=== PATIENT | female | born 1955 | race Caucasian/White ===

== ENCOUNTER 2021-08-15 16:29 | Observation (INO) | payer OTHER, SELFPAY ==
[2021-08-15] VITALS (7 sets, daily range): BP systolic 129–160; BP diastolic 59–102; PULSE 77–88; RESP 20; TEMP 36.4–36.7; O2SAT 98–100; BMI 34.1
--- NOTE | ~2021-08-15 | XR_ITS ---
EXAMINATION: XR chest 1V portable INDICATION: Elevated BNP, headache TECHNIQUE: Portable AP chest at 1912 hours COMPARISON: None available FINDINGS: Cardiomegaly is noted. There is a mild diffuse interstitial pattern. No pleural effusion or pneumothorax is identified. A triple lead cardiac pacemaker of the left chest wall ends with leads i n expected locations. Surgical clips are noted in the left upper quadrant. There is moderate osteoart hritis of the shoulders. IMPRESSION: 1. Cardiomegaly with mild pulmonary edema. Reviewed, dictated and finalized at location F.
--- NOTE | ~2021-08-15 | CT_ITS ---
EXAMINATION: CT brain wo con INDICATION: Headache, history of CVA COMPARISON: None TECHNIQUE: Standard unenhanced head CT. The dose-length product (DLP) was 681.00 mGy-cm. The mA was a djusted according to patient size. Iterative reconstruction technique was employed. FINDINGS: There is no acute intraparenchymal hemorrhage. No evidence of mass lesion. No evidence of a cute infarction. There is encephalomalacia in the right frontal, parietal, and occipital lobes relate d to prior infarct. There is mild periventricular and subcortical hypodensity probably related to sma ll vessel ischemic disease. There is mild prominence of the sulci and ventricles related to cerebral atrophy. Intracranial calcified cerebral atherosclerosis is noted. There are no extra-axial collectio ns. There is no mass effect or midline shift. The orbits and soft tissues are unremarkable. The visua lized sinuses and mastoid air cells are well aerated. IMPRESSION: 1. Areas of prior infarct without acute intracranial abnormality. 2. Age related findings. Reviewed, dictated and finalized at location F.
--- NOTE | ~2021-08-15 | CT_ITS ---
EXAMINATION: CT cervical spine wo con DATE: 08/15/2021 17:32 INDICATION: Headache TECHNIQUE: Computed tomography (CT) of the cervical spine was performed without intravenous contrast. The dose-length product (DLP) was 681.00 mGy-cm. Automated exposure control and iterative reconstruc tion technique were employed. COMPARISON: None FINDINGS: There are 2 mm of retrolisthesis of C4 on C5. The vertebral body heights are maintained. Th ere is mild loss of intervertebral disc space height at multiple levels throughout the cervical spine . The odontoid is intact. The prevertebral soft tissues are normal. Small degenerative osteophytes pr oject from the anterior endplates of multiple vertebral bodies. IMPRESSION: 1. Mild cervical spondylosis without acute findings. Reviewed, dictated and finalized at location F.
--- NOTE | 2021-08-15 16:49 | ECG_ITS ---
Measurements Intervals [place] Rate: 87 P: 47 NM: 165 QRS: 2 QRSD: 138 T: 54 QT: 417 QTc: 503 Interpretive Statements ELECTRONIC VENTRICULAR PACEMAKER NO FURTHER INTERPRETATION POSSIBLE NO PREVIOUS ECG AVAILABLE FOR COMPARISON Electronically Signed On 08-15-2021 17:10:18 CDT by Ray Tracy M.D.
--- NOTE | 2021-08-15 17:02 | ED.HA ---
HPI - Headache General Chief Complaint: Headache Stated Complaint: possible stroke Time Seen by Provider: 08/15/21 16:34 Source: patient and family Mode of arrival: ambulatory Limitations: no limitations History of Present Illness HPI Narrative: this is 66-year-old female with a history of stroke that occurred in 2017 with left-sided residual mainly her left arm currently started having headache earlier this morning at about a 7 in the morning, and the patient was concerned that when she had her stroke she developed a headache. Currently there is some nausea with no vomiting does have a history of CHF and hypertension. The patient has no fever chills no shortness of breath no chest pain does have a a pacemaker in place. There is no dysuria no abdominal pain no flank pain no blurry vision no new neurological deficits. MD elicited complaint: headache Pertinent past history: other ( history of CVA) Onset description: gradually Location: right and band-like Severity: moderate Pain scale (0-10): 6 Quality & Timing: aching Exacerbating factors: movement of head/neck Related Data Home Medications Medication Instructions Recorded Confirmed aspirin 81 mg PO DAILY 08/15/21 08/15/21 atorvastatin 80 mg PO DAILY 08/15/21 08/15/21 bupropion HCl 300 mg PO DAILY 08/15/21 08/15/21 carbidopa-levodopa 1 tablet PO TID 08/15/21 08/15/21 citalopram 40 mg PO DAILY 08/15/21 08/15/21 clopidogrel 75 mg PO DAILY 08/15/21 08/15/21 furosemide 20 mg PO QACLUNCH 08/15/21 08/15/21 furosemide 40 mg PO QACBREAK 08/15/21 08/15/21 insulin glargine [Lantus Solostar 50 unit SUBCUT BID 08/15/21 08/15/21 U-100 Insulin] insulin lispro [Admelog U-100 30 unit SUBCUT TID 08/15/21 08/15/21 Insulin lispro] isosorbide mononitrate 30 mg PO DAILY 08/15/21 08/15/21 lorazepam 0.25 - 0.5 mg PO TID PRN 08/15/21 08/15/21 magnesium oxide 400 mg PO DAILY 08/15/21 08/15/21 nitroglycerin 0.4 mg SUBLINGUAL DAILY PRN 08/15/21 08/15/21 oxybutynin chloride 5 mg PO BID 08/15/21 08/15/21 pantoprazole 40 mg PO DAILY 08/15/21 08/15/21 pramipexole 0.25 mg PO HS 08/15/21 08/15/21 sacubitril-valsartan [Entresto] 1 tablet PO BID 08/15/21 08/15/21 Allergies Allergy/AdvReac Type Severity Reaction Status Date / Time buspirone [BuSpar] Allergy Intermediate nausea Verified 10/19/20 09:38 duloxetine [Cymbalta] Allergy Intermediate Unknown Verified 08/15/21 16:51 pregabalin [Lyrica] Allergy Intermediate Unknown Verified 08/15/21 16:51 sulfamethoxazole Allergy Unknown Verified 08/15/21 16:51 [From Bactrim] trimethoprim [From Bactrim] Allergy Unknown Verified 08/15/21 16:51 Review of Systems Review of Systems: All systems reviewed & are unremarkable except as noted in HPI and below PMFSH Past Medical History Medical History CHF (congestive heart failure) History of CVA (cerebrovascular accident) HTN (hypertension) Pacemaker Social History Social History Smoking status: Current every day smoker Exam Const: General: no acute distress and alert Orientation/consciousness: patient oriented x3 HENMT: Head: normal to inspection Eyes: Conjunctivae: conjunctivae normal Pupils: Equal, round and reactive pupils present EOM: EOMs intact bilaterally Neck: Neck: normal visual inspection, no lymphadenopathy and no meningeal signs Chest: Chest palpation & inspection: normal inspection of the chest Resp: Effort & Inspection: normal respiratory effort Auscultation: clear to auscultation bilaterally Cardio: Rate: regular rate Rhythm: regular rhythm Heart sounds: Murmur heart sound present GI: GI Palp: Yes Soft to palpation : General: Yes no CVA tenderness Urinary Catheter: Urinary Catheter: patent and draining Back/Spine/Pelvis: Back: no CVA tenderness Skin: General skin exam: normal color Rashes: no rashes Neuro: General: patient oriented x3, moves all
[2021-08-15] MEDS: ONDANSETRON INJ 4 MG/2 ML VIAL IV PUSH (17:10)
[2021-08-15] MEDS: MORPHINE SULFATE (*CRX) 2 MG/ML INJ IV PUSH (17:10)
[2021-08-15 17:11] LABS: Basophils Absolute Auto 0.05 K/mm3 (0.00-0.10); Basophils Percent Auto 0.5 % (0.0-1.0); Eosinophils Absolute Auto 0.17 K/mm3 (0.02-0.50); Eosinophils Percent Auto 1.8 % (1.0-6.0); Hematocrit 44.4 % (35.0-49.0); Hemoglobin 14.6 g/dL (12.0-15.0); Immature Granulocyte Absolute 0.03 K/mm3 (0.00-0.00); Immature Granulocyte Percent A 0.3 % (0.0-0.0); Lymphocytes Absolute Auto 1.95 K/mm3 (1.10-4.50); Lymphocytes Percent Auto 21.2 % (18.0-42.0); Mean Corpuscular HGB Conc 32.9 g/dL (32.0-36.0); Mean Corpuscular Hemoglobin 26.1 pg (27.0-31.0); Mean Corpuscular Volume 79.3 fL (78.0-102.0); Mean Platelet Volume 9.7 fl (9.2-11.8); Monocytes Absolute Auto 0.47 K/mm3 (0.10-0.90); Monocytes Percent Auto 5.1 % (2.0-11.0); Neutrophils Absolute Auto 6.5 K/mm3 (1.7-7.2); Neutrophils Percent Auto 71.1 % (50.0-70.0); Platelet Count Result 228 K/mm3 (150-420); Red Cell Distribution Width 13.4 % (11.6-14.4); White Blood Count 9.2 K/mm3 (4.8-10.8)
[2021-08-15 17:26] LABS: Alanine Aminotransferase 17 U/L (14-59); Albumin Level 3.2 g/dL (3.4-5.0); Alkaline Phosphatase 110 U/L (46-116); Anion Gap 10 mmol/L (8-16); Aspartate Amino Transferase 21 U/L (15-37); Bilirubin,Total 0.5 mg/dL (0.00-1.00); Blood Urea Nitrogen 10 mg/dL (7-18); Calcium 9.3 mg/dL (8.5-10.1); Carbon Dioxide 27 mmol/L (21-32); Chloride 94 mmol/L (98-108); Estimated CRCL calculation 49 ml/min; Estimated Glomerular Filt Rate 54; Glucose 373 mg/dL (70-99); Osmolality Calculated 286 mOsm/kg (285-295); Potassium 3.6 mmol/L (3.5-5.1); Sodium 131 mmol/L (136-145); Total Protein 8.1 g/dL (6.4-8.2); Troponin I 56.5 ng/L (0.00-60.4)
[2021-08-15 17:28] LABS: CRP < 0.2 mg/dL (0.0-0.9)
[2021-08-15 17:29] LABS: Lactic Acid Reflex 1.9 mmol/L (0.4-2.0)
[2021-08-15 18:01] LABS: NT Pro B Type Natriuretic Pept 1540 pg/mL (0-125)
[2021-08-15 18:17] LABS: Add Urine Microscopic? YES; Appearance Urine Clear (Clear); Bilirubin Urine Negative (Negative); Blood Urine 2+ (Negative); Color Urine Light Yellow (Yellow); Glucose Urine UA 3+ (Negative); Ketones Urine Negative (Negative); Leukocyte Esterase Ur Negative (Negative); Nitrate Urine Positive (Negative); Protein Urine 3+ (Negative); Urobilinogen Urine 0.2 mg/dL (0.2-1.0)
[2021-08-15 18:23] LABS: Bacteria Urine 3+ /hpf; RBC Urine 21-50 /hpf (0-2); Squamous Epithelial Cell Urine None seen /hpf (Few)
--- NOTE | 2021-08-15 19:15 | ADMGEN ---
This patient, Lillian Huntley, was admitted to 2nd Floor Room 205-2. Patient/family oriented to hospital policies and general routines including ID bracelet, bed and alarms, pain management, procedures, bathroom and other care routines, personal items, smoking policy, room service/diet, and visiting hours. Information on how to activate the Rapid Response Team has been discussed. Patient/Family are encouraged to report perceived risks to care and to ask questions if they do not understand what they are told or what they should do.
[2021-08-15] MEDS: INSULIN GLARGINE (*BKC) 100 UNITS/ML 50 UNITS SUB-Q (21:06)
[2021-08-15] MEDS: OXYBUTYNIN CHLORIDE 5 MG TABLET PO (21:07)
[2021-08-15] MEDS: PRAMIPEXOLE 0.25 MG TABLET PO (21:07)
[2021-08-15] MEDS: SODIUM CHLORIDE 1 GM TABLET PO (21:07)
[2021-08-15] MEDS: SACUBITRIL/VALSARTAN 24-26 MG TABLET 1 TAB PO (21:07)
[2021-08-15 21:08] LABS: Glucose Point of Care 288 mg/dl (65-105)
[2021-08-16] VITALS: BP 110/60; PULSE 66; RESP 18; TEMP 36.7; O2SAT 96
[2021-08-16] MEDS: HYDROcodone/acetaminophen (*CRX) 5-325 MG TABLET 1 TAB PO (04:26)
[2021-08-16 05:32] LABS: Hemoglobin 12.4 g/dL (12.0-15.0); Mean Corpuscular HGB Conc 31.8 g/dL (32.0-36.0); Mean Corpuscular Hemoglobin 26.1 pg (27.0-31.0); Mean Corpuscular Volume 82.1 fL (78.0-102.0); Mean Platelet Volume 9.9 fl (9.2-11.8); Platelet Count Result 195 K/mm3 (150-420); Red Blood Count 4.75 M/mm3 (4.20-5.40); Red Cell Distribution Width 13.6 % (11.6-14.4); White Blood Count 8.9 K/mm3 (4.8-10.8)
[2021-08-16 05:49] LABS: Alanine Aminotransferase 14 U/L (14-59); Albumin Level 2.7 g/dL (3.4-5.0); Alkaline Phosphatase 88 U/L (46-116); Anion Gap 7 mmol/L (8-16); Aspartate Amino Transferase 17 U/L (15-37); Bilirubin,Total 0.4 mg/dL (0.00-1.00); Blood Urea Nitrogen 18 mg/dL (7-18); Calcium 8.4 mg/dL (8.5-10.1); Carbon Dioxide 27 mmol/L (21-32); Chloride 98 mmol/L (98-108); Estimated CRCL calculation 33 ml/min; Estimated Glomerular Filt Rate 33; Glucose 293 mg/dL (70-99); Magnesium 1.7 mg/dL (1.8-2.4); Osmolality Calculated 286 mOsm/kg (285-295); Potassium 3.5 mmol/L (3.5-5.1); Sodium 132 mmol/L (136-145); Total Protein 6.7 g/dL (6.4-8.2)
[2021-08-16 08:00] VITALS: BP 102/52; PULSE 64; RESP 16; TEMP 36.1; O2SAT 93
[2021-08-16 08:04] LABS: Glucose Point of Care 316 mg/dl (65-105)
[2021-08-16] MEDS: ENOXAPARIN 40 MG/0.4 ML SYRINGE SUB-Q (08:17)
[2021-08-16] MEDS: buPROPion HCL XL (24 HR) 150 MG TABCR 300 MG PO (08:17)
[2021-08-16] MEDS: ISOSORBIDE MONONITRATE 30 MG TAB.ER.24H PO (08:18)
[2021-08-16] MEDS: OXYBUTYNIN CHLORIDE 5 MG TABLET PO (08:18)
[2021-08-16] MEDS: CITALOPRAM HYDROBROMIDE 20 MG TABLET 40 MG PO (08:18)
[2021-08-16] MEDS: ATORVASTATIN 40 MG TABLET 80 MG PO (08:19)
[2021-08-16] MEDS: SODIUM CHLORIDE 1 GM TABLET PO (08:19)
[2021-08-16] MEDS: ASPIRIN 81 MG ENTERIC TABLET PO (08:19)
[2021-08-16] MEDS: FUROSEMIDE 40 MG TABLET PO (08:19)
[2021-08-16] MEDS: PANTOPRAZOLE 40 MG TABLET PO (08:19)
[2021-08-16] MEDS: CLOPIDOGREL BISULFATE 75 MG TABLET PO (08:19)
[2021-08-16] MEDS: MAGNESIUM OXIDE 400 MG TABLET PO ×2 (08:20→12:31)
[2021-08-16] MEDS: CARBIDOPA/LEVODOPA 25/100 MG TABLET 1 TABLET PO ×2 (08:20→12:31)
[2021-08-16] MEDS: INSULIN GLARGINE (*BKC) 100 UNITS/ML 50 UNITS SUB-Q (08:21)
[2021-08-16] MEDS: PROCHLORPERAZINE EDISYLATE 10 MG/2 ML VIAL IV PUSH (08:30)
[2021-08-16] MEDS: SACUBITRIL/VALSARTAN 24-26 MG TABLET 1 TAB PO (08:40)
[2021-08-16] MEDS: SODIUM CHLORIDE 0.9% IV 1,000 ML 75 ML IV CONT (08:41)
--- NOTE | 2021-08-16 09:55 | PM.SD2 ---
Same Day Admit/Disch: HPI History of Present Illness Chief complaint: UTI,Hyperglycemia Narrative: Lillian Huntley is a 66 year old female that presented to our emergency department with a headache and concerns for a CVA. Patient has a past medical history of congestive heart failure, Parkinson's ,CVA, hypertension and pacemaker. According to patient she developed a headache yesterday she also noted that with her previous CVA she had the same symptoms and was concerned that she might possibly be having another CVA. Patient does have residual from her previous CVA to her left side she is currently having involuntary flinching of her eye in lip to the right side which is new for her. Patient is also lethargic at the time of assessment she is arousable. It does not appear to be any residual to her upper or lower extremities. She also has facial drooping to the left side from a previous CVA she continues to have a headache. Vital signs 110/60, 66, 18, 98.1, 96% on room air, WBCs 8.9, hemoglobin 12.4, hematocrit 39.0, platelets 195, sodium 132, potassium 3.5, BUN 18, creatinine 1.59, glucose 293, hemoglobin A1c 12.0, lactic acid 1.9, calcium 8.4, magnesium 1.7, BNP 1540, CRP within normal CRP, troponin, lactic acid are within normal limits, UA positive for protein, chest x-ray with mild pulmonary edema cervical and head CT no acute findings. Spoke with Dr. Dean concerning patient's symptoms recommend transfer to rule out new CVA or seizures. We will not be able to get a MRI complete until tomorrow. [facility] Past Medical History Medical History Arthritis Cardiomyopathy Status post ICD insertion. Cerebrovascular accident Mild left-sided weakness. Congestive heart failure Coronary artery disease Hypertension Insulin dependent type 2 diabetes mellitus Parkinsons Surgical History Surgical History History of cardiac catheterization History of cholecystectomy History of coronary angioplasty with insertion of stent History of hysterectomy Presence of combination internal cardiac defibrillator (ICD) and pacemaker Family History Family History Other Diabetes mellitus Hypertension Social History Social History Social History: Surrogate decision maker: Denilson Ceron. Code status: Full code. Smoking packs per day: 1 Smoking cigarettes per day: 20.0 Years smoked: 46 Smoking pack-years: 46.00 Smoking status: Current some day smoker Tobacco type: cigarettes Alcohol intake: never Substance use: never Substance use type: does not use Additional living arrangements comments: The patient lives in [place] with her [facility]. Spiritual care concerns: No Same Day Admit/Disch: Med Pre-admit Medications Home Medications Medication Instructions Recorded Confirmed Type Entresto 1 tablet PO BID 08/15/21 08/16/21 History Lantus Solostar U-100 Insulin 50 unit SUBCUT BID 08/15/21 08/16/21 History aspirin 81 mg PO DAILY 08/15/21 08/16/21 History atorvastatin 80 mg PO DAILY 08/15/21 08/16/21 History bupropion HCl 300 mg PO DAILY 08/15/21 08/16/21 History carbidopa-levodopa 1 tablet PO TID 08/15/21 08/16/21 History citalopram 40 mg PO DAILY 08/15/21 08/16/21 History clopidogrel 75 mg PO DAILY 08/15/21 08/16/21 History furosemide 20 mg PO QACLUNCH 08/15/21 08/16/21 History furosemide 40 mg PO QACBREAK 08/15/21 08/16/21 History insulin lispro [Admelog U-100 30 unit SUBCUT TID 08/15/21 08/16/21 History Insulin lispro] isosorbide mononitrate 30 mg PO DAILY 08/15/21 08/16/21 History lorazepam 0.25 - 0.5 mg PO TID PRN 08/15/21 08/16/21 History magnesium oxide 400 mg PO DAILY 08/15/21 08/16/21 History nitroglycerin 0.4 mg SUBLINGUAL DAILY PRN 08/15/21 08/16/21 History oxybutynin chloride 5 mg PO BID 08/15/21 08/16/21 History pantopr
--- NOTE | 2021-08-16 10:37 | PC.NURSE ---
this am lying across bed. lorie help me up. ambulated to chair with stand by assist. gait is wobbly. left arm is weaker. when smiles l side doesn't move. c/o of headache in back of head and into r eye. r eye keeps flittering open and shut and scrouches up on r when asked to open eye. keeps eyes closed. she is a&o. did have sm emesis of green brown mucous. prn meds given. took only bites of food. does drink. remains up in recliner with feet up. does not want to lie down. cool compress to forehead and ice pack to back of head/neck. arouses easily and then drifts off.
[2021-08-16 11:46] LABS: Glucose Point of Care 137 mg/dl (65-105)
--- NOTE | 2021-08-16 12:10 | PC.NURSE ---
[facility] paged for transfer to [facility]
[2021-08-16] MEDS: FUROSEMIDE 20 MG TABLET PO (12:31)
--- NOTE | 2021-08-16 12:35 | PC.NURSE ---
1200 remains sluggish will respond when asked to. put legs down on recliner to get her to sit up for lunch. patient lunges out walks to other side of room then starts saying I can move. with lots of encouragement able to get her back to bsc. will not follow commands. does complete opposite. incont of urine. with 2 assist and much encouragement got her back to bed. hob bed. claims head hurts. ice pack applied. r eye and side of cont to twitch off and on. report given to corinne on 3rd floor at [facility]. [facility] aware of transfer need. refuses lunch. rolls over and curls up.
--- NOTE | 2021-08-16 12:45 | PC.NURSE ---
arouses easily very alert. quizative about meds being given. answers given. reufuses lunch. aware of transfer to [facility]. talkative and then just drifts back to sleep.
== END 2021-08-16 13:00 | disposition short-term general hospital (02) ==
LOC: CHSED 18:37 → CHS2ND 19:00
PROVIDERS: Nurse Practitioner; Admitting Provider Internal Medicine; Emergency Provider Emergency Medicine; PCP Family Medicine; Visit Provider Internal Medicine
DX: R51.9 Headache, unspecified (principal); N30.00 Acute cystitis without hematuria; E87.1 Hypo-osmolality and hyponatremia; I69.354 Hemiplegia and hemiparesis following cerebral infarction affecting left non-dominant side; I11.0 Hypertensive heart disease with heart failure; I50.9 Heart failure, unspecified; N17.9 Acute kidney failure, unspecified; G20 Parkinson's disease; Z95.0 Presence of cardiac pacemaker; Z72.0 Tobacco use
CPT/HCPCS: 36415; 70450; 71045; 72125; 80053; 81001; 82948; 83036; 83605; 83735; 83880; 84484; 85025; 85027; 86140; 87040; 87077; 87086; 87088; 87186; 93005; 96372; 96374; 96375; 97161; 97165; 99285; A9270; G0378; G0379; J0696; J0780; J1650; J1815; J2270; J2405; J7030

== ENCOUNTER 2021-08-16 14:09 | Observation (INO) | payer OTHER, SELFPAY ==
[2021-08-16] VITALS (8 sets, daily range): BP systolic 80–100; BP diastolic 48–60; PULSE 60–73; RESP 16–18; TEMP 36.1–36.2; O2SAT 92–99; BMI 34.7
--- NOTE | ~2021-08-16 | US_ITS ---
EXAMINATION: US renal BI DATE: 08/17/2021 08:24 INDICATION: Renal failure TECHNIQUE: Multiple ultrasound grayscale images of the kidneys were obtained. COMPARISON: None. FINDINGS: The right kidney measures 11.5 x 5.1 x 4.9 cm. The left kidney measures 12.6 x 6.0 x 5.2 cm. The kidn eys demonstrate normal echogenicity. There is no hydronephrosis in either kidney. No stones identifi ed. The bladder is unremarkable but is incompletely distended limiting evaluation. IMPRESSION: 1. Normal kidneys without hydronephrosis. Reviewed, dictated and finalized at location A.
--- NOTE | 2021-08-16 15:30 | PM.IMHP ---
H&P: HPI History of Present Illness Date/Time: 08/16/21 15:30 Chief Complaint: Headache and right eye twitching. Narrative: This is a 66-year-old female with history of Parkinson's, stroke, congestive heart failure, cardiomyopathy status post PM/ICD insertion, diabetes, and hypertension who is being directly admitted to telemetry from the [facility] for evaluation of a headache and right eye twitching as well as consultation with Neurology. She awoke with a headache (described as aching and band like around the head) at 07:00 yesterday morning associated with mild nausea and photophobia and she presented to the ER at the outside hospital later that afternoon as she was concerned that she was possibly having another stroke. It is my understanding that her previous stroke presented with a headache as well. Workup in the ER included a CT scan of the brain and cervical spine which showed no acute findings. UA was concerning for UTI and she was admitted to the hospital overnight for treatment of the same as well as with mild hyponatremia. This morning she was noted to have involuntary twitching around her right eye and the right side of her mouth which was assumed to be new however the patient tells me this has been ongoing for quite some time and in fact this is not a new finding for her. She was also noted to be ?lethargic? at the time of their assessment and indeed she seems to fall asleep and does not answer some of my questions without consistently touching her hand to keep her attention. She did however spring up quickly each time her phone would ping with a new message and she was able to quickly navigate the phone before setting it down and closing her eyes once again. Eventually she was very sam and told me ?I just want to sleep and not answer any more questions, sorry.? Before that interaction, she did report generalized malaise for the past couple of days including nausea and decreased oral intake as well as the headache as detailed above. She has also had mild dizziness and lightheadedness upon standing the past couple of days and her blood pressures have been running soft in the 90s systolic. Apparently that is not unusual for her since she was started on Entresto months ago. Additionally she has had mild dysuria and urgency. She had no fever to her knowledge but reported feeling warm yesterday morning. She denies neck ache. No sinus congestion, sore throat, or ear pain. No cough. She denies vomiting and diarrhea. No sick contacts. Review of Systems Review of Systems: Twelve systems were reviewed. She denies syncope. No recent falls. No acute auditory visual changes. She denies vertigo. No focal weakness or paresthesias aside from residual left-sided weakness from previous stroke. Except as documented, all other systems were reviewed and are negative. [facility] Past Medical History Medical History (Updated 08/16/21 @ 22:44 by Cally Lynne PA-C) Arthritis Cardiomyopathy Status post ICD insertion. Cerebrovascular accident Mild left-sided weakness. Congestive heart failure Coronary artery disease Hypertension Insulin dependent type 2 diabetes mellitus Parkinsons Surgical History Surgical History (Updated 08/16/21 @ 22:27 by Cally Lynne PA-C) History of cardiac catheterization History of cholecystectomy History of coronary angioplasty with insertion of stent History of hysterectomy Presence of combination internal cardiac defibrillator (ICD) and pacemaker Family History Family History (Updated 08/16/21 @ 22:27 by Cally Lynne PA-C) Other Diabetes mellitus Hypertension Social History Social History (Updated 08/16/21 @ 22:28 by Cally Lynne PA-C) Social History: Surrogate decision maker: Denilson Ceron. Code status: Full code. Smoking packs per day: 1 Smoking cigarettes per day: 20.0 Years smoked: 46 Smoking pack-years: 46.00 Smoking status: Current some day smoker Tobacco
[2021-08-16] MEDS: SODIUM CHLORIDE 0.9% IV 1,000 ML 999 ML IV CONT (18:11)
[2021-08-16 23:16] LABS: Alveolar/Arterial O2 Gradient 42.3 mmHg; Base Excess ABG -1.3 mEq/l (+/-2.0); Carboxyhemoglobin 0.5 % THb (0-2.0); Fractional Inspired Oxygen 21 %; HCO3 ABG 22.5 mEq/l (22.0-26.0); Methemoglobin ABG 0.2 %THb (0-1.5); Oxygen Saturation ABG 93.4 % (95.0-100.0); Oxyhemoglobin 92.7 % THb (90.0-100.0); PCO2 ABG 35.3 mmHg (35.0-45.0); PO2 ABG 65.2 mmHg (80.0-100.0); Reduced Hemoglobin 6.6 %THb (0-5.0); Total Hemoglobin 14.6 g/dL (12.0-18.0); pH ABG 7.422 (7.350-7.450)
[2021-08-16 23:17] LABS: Device ROOM AIR; Modified Allen's Test Pass; Site Drawn LEFT RADIAL
[2021-08-16] MEDS: INSULIN GLARGINE (*BKC) 100 UNITS/ML 50 UNITS SUB-Q (23:33)
[2021-08-16] MEDS: SODIUM CHLORIDE 0.9% IV 500 ML 50 ML IV CONT (23:34)
[2021-08-16] MEDS: CARBIDOPA/LEVODOPA 25/100 MG TABLET 1 TABLET PO (23:39)
[2021-08-16 23:47] LABS: Alanine Aminotransferase 6 U/L (4-35); Albumin Level 3.1 g/dL (3.5-5.1); Alkaline Phosphatase 85 U/L (38-126); Anion Gap 3 mmol/L (8-16); Aspartate Amino Transferase 23 U/L (14-36); Bilirubin,Total 0.3 mg/dL (0.2-1.3); Blood Urea Nitrogen 23 mg/dL (7-17); Calcium 8.2 mg/dL (8.4-10.2); Carbon Dioxide 27 mmol/L (22-30); Chloride 102 mmol/L (98-107); Estimated CRCL calculation 28 ml/min; Estimated Glomerular Filt Rate 27; Glucose 228 mg/dL (65-110); Magnesium 1.9 mg/dL (1.6-2.3); Potassium 3.5 mmol/L (3.4-5.0); Sodium 132 mmol/L (137-145)
[2021-08-17] VITALS (8 sets, daily range): BP systolic 97–142; BP diastolic 32–64; PULSE 60–82; RESP 14–18; TEMP 35.8–37; O2SAT 92–97
--- NOTE | 2021-08-17 05:26 | PCRCNOTE ---
Cally Lynne PA-C ordered an Apnea Link study on this patient to assess for BILL. The study was started on the patient at 23:55. The patient was on room air. At 00:55, the patient was found to be asleep but with the nasal cannula out of her nose; it was placed back in her nose. At 02:20, the patient was found to have removed the nasal cannula, the finger pulse ox probe, and the strap from around her chest; the study was placed back on the patient. At 02:50, the patient was again found asleep but with the nasal cannula out of her nose; the cannula was placed back in her nose. When the study was completed at approximately 05:00, the patient was again found asleep but with the nasal cannula out of her nose. The study only had 1 hour 30 minutes of flow data. There was not sufficient data available for the study.
[2021-08-17 06:40] LABS: Hematocrit 36.1 % (37.0-47.0); Hemoglobin 11.7 g/dL (12.0-15.0); Mean Corpuscular HGB Conc 32.4 g/dl (32-36); Mean Corpuscular Hemoglobin 26.4 pg (26-34); Mean Corpuscular Volume 81.5 fl (80-100); Mean Platelet Volume 10.3 fl (7.4-10.4); Platelet Count Result 185 k/mm3 (150-375); Red Blood Count 4.43 M/mm3 (4.2-5.4); Red Cell Distribution Width 13.9 % (11.5-14.5); White Blood Count 8.6 K/mm3 (4.5-10.0)
[2021-08-17 06:55] LABS: Anion Gap 6 mmol/L (8-16); Blood Urea Nitrogen 25 mg/dL (7-17); Calcium 8.1 mg/dL (8.4-10.2); Carbon Dioxide 25 mmol/L (22-30); Chloride 102 mmol/L (98-107); Estimated CRCL calculation 36 ml/min; Estimated Glomerular Filt Rate 35; Glucose 174 mg/dL (65-110); Potassium 3.3 mmol/L (3.4-5.0); Sodium 133 mmol/L (137-145)
--- NOTE | 2021-08-17 08:09 | ECHO_ITS ---
Patient Info Name: Lillian Huntely Age: 66 years : 1955 Gender: Female Ht: 62 in Wt: 199 lbs BSA: 2.03 m2 HR: 78 bpm BP: 108 / 54 mmHg Heart Rhythm: Sinus Rhythm Technical Quality: Good Exam Date: 08/17/2021 10:13 AM Exam Location: [facility] Pulmonary Exam Room: 325 Patient Status: Inpatient Admit Date: 08/16/2021 Staff Ordering Physician: Indiana Love APRN Tower Equipment Repairer: More Acevedo RDCS Attending Provider: Johnathan Dewitt MD Referring Physician: Ivan BASS; Exam Type: CA echo doppler color flow Study Info Indications - SOB PPM Complete two-dimensional, color flow and Doppler transthoracic echocardiogram is performed. Summary 1. Complete two-dimensional, color flow and Doppler transthoracic echocardiogram is performed. 2. Left ventricular chamber dimension is mildly enlarged. 3. Left ventricular systolic function is mildly reduced, estimated at 40-45%. 4. The posterior segment appears to be hypodynamic. 5. Right ventricular chamber dimension is normal. 6. Mildly sclerotic aortic valve but no significant valve dysfunction. Left Ventricle Left ventricular chamber dimension is mildly enlarged. Left ventricular systolic function is mildly reduced, estimated at 40-45%. The left ventricular diastolic function is grade I diastolic dysfunction. The posterior segment appears to be hypodynamic. Right Ventricle Right ventricular chamber dimension is normal. Left Atria Left atrial chamber dimension is normal. Right Atria Right atrial chamber dimension is normal. Aortic Valve The aortic valve is trileaflet. There is mild aortic valve sclerosis. Pulmonic Valve The pulmonic valve is not well visualized. Mitral Valve The mitral valve has normal leaflets. Tricuspid Valve The tricuspid valve leaflets are normal. Pericardium/Pleural The pericardium appears normal. Aorta The aortic root size at the sinus of Valsalva is normal. Left Ventricular Outflow Tract Name Value Normal LVOT 2D LVOT Diameter 2.0 cm LVOT Doppler LVOT Peak Gradient 5 mmHg LVOT Mean Gradient 4 mmHg LVOT VTI 24 cm LVOT VTI/AV VTI Ratio 0.7 LVOT Stroke Volume 78 ml LVOT CO 17.9 l/min LVOT CI 8.8 l/min/m2 Pulmonic Valve Name Value Normal PV Doppler PV Peak Gradient 3 mmHg Mitral Valve Name Value Normal MV Doppler MV Decel Davidson 236 cm/s2
[2021-08-17] MEDS: POTASSIUM CHLORIDE 20 MEQ TABLET 40 MEQ PO (08:34)
[2021-08-17] MEDS: CITALOPRAM HYDROBROMIDE 20 MG TABLET 40 MG PO (08:35)
[2021-08-17] MEDS: PANTOPRAZOLE 40 MG TABLET PO (08:35)
[2021-08-17] MEDS: ASPIRIN 81 MG ENTERIC TABLET PO (08:35)
[2021-08-17] MEDS: CARBIDOPA/LEVODOPA 25/100 MG TABLET 1 TABLET PO ×3 (08:35→16:35)
[2021-08-17] MEDS: ATORVASTATIN 40 MG TABLET 80 MG PO (08:35)
[2021-08-17] MEDS: MAGNESIUM OXIDE 400 MG TABLET PO (08:35)
[2021-08-17] MEDS: buPROPion HCL XL (24 HR) 150 MG TABCR 300 MG PO (08:35)
[2021-08-17] MEDS: CLOPIDOGREL BISULFATE 75 MG TABLET PO (08:35)
[2021-08-17 08:48] LABS: Glucose Point of Care 170 mg/dl (65-105)
[2021-08-17] MEDS: OXYBUTYNIN CHLORIDE 5 MG TABLET PO ×2 (09:17→16:36)
[2021-08-17] MEDS: FUROSEMIDE 20 MG TABLET PO (12:04)
--- NOTE | 2021-08-17 12:17 | PM.IMPN ---
Progress Note: A&P Assessment and Plan (1) Headache: Qualifiers: Headache chronicity pattern: unspecified pattern Headache type: unspecified Intractability: not intractable Qualified Code(s): R51.9 - Headache, unspecified Code(s): R51.9 - Headache, unspecified Status: Acute Assessment and Plan: Brain CT unremarkable. Seems almost migrainous with photosensitivity and nausea. Acetaminophen available as needed. Patient reports previously CVA with left-sided weakness--no acute findings at this time with a brain CT Neurology consult appreciate assistance and recommendations (2) Electrolyte abnormality: Code(s): E87.8 - Other disorders of electrolyte and fluid balance, not elsewhere classified Status: Acute Assessment and Plan: Including mild hyponatremia (132) and hypomagnesemia (1.7). She looks dry on exam, by labs, and with soft blood pressures I will cautiously hydrate her overnight with close monitoring of volume status. Replace and monitor electrolytes. Replace serum electrolytes, potassium 3.3-received 40 mEq of Klor-Con (3) Renal failure: Code(s): N19 - Unspecified kidney failure Status: Acute Assessment and Plan: I suspect she probably has underlying chronic kidney disease. Creatinine this morning was 1.59, up from 1.03 on arrival to the ER yesterday. Records requested from her primary care provider for review. Renal ultrasound in a.m. Monitor I/O. Patient is aware that she may have kidney disease, however she does not know what stage. Pending paperwork from primary care provider in [place] (4) Insulin dependent type 2 diabetes mellitus: Code(s): E11.9 - Type 2 diabetes mellitus without complications; Z79.4 - termite control technician (current) use of insulin Status: Acute Assessment and Plan: Poorly controlled with A1c of 12%. Continue basal insulin. Initiate sliding scale insulin, Accu-Cheks, and hypoglycemic protocol. Consult registered dietitian have a discussion with the patient, she agreed to be open minded about diet discussion (5) Abnormal urinalysis: Code(s): R82.90 - Unspecified abnormal findings in urine Status: Acute Assessment and Plan: Continue ceftriaxone, pending urine culture. (6) Cardiomyopathy: Code(s): I42.9 - Cardiomyopathy, unspecified Status: Acute Assessment and Plan: Status post PM/ICD insertion. Mild pulmonary edema on chest x-ray though she looks dry on exam. (7) Hypertension: Code(s): I10 - Essential (primary) hypertension Status: Acute Assessment and Plan: Blood pressures have been soft. Cautious IV fluid rehydration overnight. Continue Entresto with parameters. Hold isosorbide for now. (8) Parkinsons: Code(s): G20 - Parkinson's disease Status: Acute Assessment and Plan: Continue carbidopa-levodopa. Initiate fall precautions. 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 Neurology consult in Subjective Date/time seen: 08/17/21 12:17 Patient is alert and oriented this morning. She reports that she is extremely tired and after having a migraine yesterday. She has some residual headache. Had a discussion about the patient's renal function-patient reports that she has kidney issues but does not know what stage kidney disease. A renal ultrasound is currently pending and the patient was placed on Rocephin for urinary tract infection. Discussed diabetes mellitus with the patient as she reports having blood glucose levels to 200s consistently. Discussed monitoring diet control and she was agreeable to following a registered dietitian and the ability. Chest x-ray did reveal pulmonary edema however the patient does appear dry therefore did not
[2021-08-17 12:19] LABS: Glucose Point of Care 158 mg/dl (65-105)
--- NOTE | 2021-08-17 12:34 | WPDNEURCNPN ---
Assessment and Plan Additional Plan [address] scan of the head and cervical spine CT compatible with only mild cervical spondylosis acute gross neurological examination is nonfocal could very well be related to only migraines her ultrasound of the kidneys are normal and right-sided facial deficit is probably old trauma treatment will be continued as such routine blood studies are consistent with BUN 25 creatinine 1.5 blood sugar 174 and sodium wanted 33 potassium 3.3 with abnormal UA which is being treated pre Consult date: 08/17/21 HPI: Lillian Huntley is a 66 year old female Admitted to the hospital through the emergency room for the complaints of headache and possible stroke she was brought to the emergency room by the ambulance as per the information available she had a stroke in 2017 with residual left upper extremity deficit. He started having headache about 7:00 a.m. with mild nausea no vomiting and additionally carries the diagnosis of congestive heart failure and hypertension he was reportedly pacemaker in place headache was mainly bandlike more so on the right of moderate severity and described as aching, outpatient medications included Wellbutrin 300 mg daily, carbidopa levodopa 1 tablet 3 times a day, site elbow prime 40 mg daily, clopidogrel 75 mg daily, furosemide 60 mg daily, insulin 15units subcu b.i.d. lorazepam 0.25 mg t.i.d. p.r.n. and pramipexole 0.25 mg at night, as mentioned before she had the history of cerebrovascular accident with hypertension and pacemaker and also congestive heart failure but the exam was generally stable with blood pressure 160/102, Review of Systems Review of Systems: All systems reviewed & are unremarkable except as noted in HPI and below [facility] Past Medical History Medical History Arthritis Cardiomyopathy Status post ICD insertion. Cerebrovascular accident Mild left-sided weakness. Congestive heart failure Coronary artery disease Hypertension Insulin dependent type 2 diabetes mellitus Parkinsons Surgical History Surgical History History of cardiac catheterization History of cholecystectomy History of coronary angioplasty with insertion of stent History of hysterectomy Presence of combination internal cardiac defibrillator (ICD) and pacemaker Family History Family History Other Diabetes mellitus Hypertension Social History Social History Social History: Surrogate decision maker: Denilson Ceron. Code status: Full code. Smoking packs per day: 1 Smoking cigarettes per day: 20.0 Years smoked: 46 Smoking pack-years: 46.00 Smoking status: Current some day smoker Tobacco type: cigarettes Alcohol intake: never Substance use: never Substance use type: does not use Additional living arrangements comments: The patient lives in [place] with her [facility]. Spiritual care concerns: No Meds Home Medications and Allergies Home Medications Medication Instructions Recorded Confirmed Type Entresto 1 tablet PO BID 08/15/21 08/16/21 History Lantus Solostar U-100 Insulin 50 unit SUBCUT BID 08/15/21 08/16/21 History aspirin 81 mg PO DAILY 08/15/21 08/16/21 History atorvastatin 80 mg PO DAILY 08/15/21 08/16/21 History bupropion HCl 300 mg PO DAILY 08/15/21 08/16/21 History carbidopa-levodopa 1 tablet PO TID 08/15/21 08/16/21 History citalopram 40 mg PO DAILY 08/15/21 08/16/21 History clopidogrel 75 mg PO DAILY 08/15/21 08/16/21 History furosemide 20 mg PO QACLUNCH 08/15/21 08/16/21 History furosemide 40 mg PO QACBREAK 08/15/21 08/16/21 History insulin lispro [Admelog U-100 30 unit SUBCUT TID 08/15/21 08/16/21 History Insulin lispro] isosorbide mononitrate 30 mg PO DAILY 08/15/21 08/16/21 History lorazepam 0.25 - 0.5 mg PO TID PRN 08/15/21
[2021-08-17] MEDS: INSULIN GLARGINE (*BKC) 100 UNITS/ML 40 UNITS SUB-Q (16:35)
[2021-08-17] MEDS: SACUBITRIL/VALSARTAN 24-26 MG TABLET 1 TAB PO (21:32)
[2021-08-18] VITALS: BP 138/49; PULSE 62; PULSE 63; RESP 16; TEMP 35.8; O2SAT 95
[2021-08-18 04:00] VITALS: BP 136/51; PULSE 60; PULSE 62; RESP 16; TEMP 35.9; O2SAT 97
[2021-08-18] MEDS: FUROSEMIDE 40 MG TABLET PO (06:31)
[2021-08-18 08:00] VITALS: PULSE 60
[2021-08-18] MEDS: buPROPion HCL XL (24 HR) 150 MG TABCR 300 MG PO (08:41)
[2021-08-18] MEDS: CITALOPRAM HYDROBROMIDE 20 MG TABLET 40 MG PO (08:41)
[2021-08-18] MEDS: MAGNESIUM OXIDE 400 MG TABLET PO (08:42)
[2021-08-18] MEDS: OXYBUTYNIN CHLORIDE 5 MG TABLET PO (08:42)
[2021-08-18] MEDS: CLOPIDOGREL BISULFATE 75 MG TABLET PO (08:42)
[2021-08-18] MEDS: ATORVASTATIN 40 MG TABLET 80 MG PO (08:42)
[2021-08-18] MEDS: CARBIDOPA/LEVODOPA 25/100 MG TABLET 1 TABLET PO (08:42)
[2021-08-18] MEDS: INSULIN GLARGINE (*BKC) 100 UNITS/ML 40 UNITS SUB-Q (08:44)
[2021-08-18] MEDS: SACUBITRIL/VALSARTAN 24-26 MG TABLET 1 TAB PO (08:45)
[2021-08-18] MEDS: ASPIRIN 81 MG ENTERIC TABLET PO (08:45)
[2021-08-18 09:34] VITALS: BP 125/90; PULSE 59; RESP 16; TEMP 36.5; O2SAT 97
--- NOTE | 2021-08-18 10:35 | PM.DS ---
DS: Admitting Diagnosis Discharge Date 08/18/2021 Admitting Diagnosis Headache Urinary tract infection DS: Discharge Diagnosis Discharge Diagnosis (1) Headache: Qualifiers: Headache chronicity pattern: unspecified pattern Headache type: unspecified Intractability: not intractable Qualified Code(s): R51.9 - Headache, unspecified Code(s): R51.9 - Headache, unspecified Status: Acute Assessment and Plan: Brain CT unremarkable. Seems almost migrainous with photosensitivity and nausea. Acetaminophen available as needed. Patient reports previously CVA with left-sided weakness--no acute findings at this time with a brain CT Neurology consult appreciate assistance and recommendations (2) Electrolyte abnormality: Code(s): E87.8 - Other disorders of electrolyte and fluid balance, not elsewhere classified Status: Acute Assessment and Plan: Including mild hyponatremia (132) and hypomagnesemia (1.7). She looks dry on exam, by labs, and with soft blood pressures I will cautiously hydrate her overnight with close monitoring of volume status. Replace and monitor electrolytes. Replace serum electrolytes, potassium 3.3-received 40 mEq of Klor-Con --resolved (3) Renal failure: Code(s): N19 - Unspecified kidney failure Status: Acute Assessment and Plan: I suspect she probably has underlying chronic kidney disease. Creatinine this morning was 1.59, up from 1.03 on arrival to the ER yesterday. Records requested from her primary care provider for review. Renal ultrasound in a.m. Monitor I/O. Patient is aware that she may have kidney disease, however she does not know what stage. Pending paperwork from primary care provider in [place] ---resolved, this is patient's baseline (4) Insulin dependent type 2 diabetes mellitus: Code(s): E11.9 - Type 2 diabetes mellitus without complications; Z79.4 - equipment operator intermodal yard (current) use of insulin Status: Acute Assessment and Plan: Poorly controlled with A1c of 12%. Continue basal insulin. Initiate sliding scale insulin, Accu-Cheks, and hypoglycemic protocol. Consult registered dietitian have a discussion with the patient, she agreed to be open minded about diet discussion (5) Abnormal urinalysis: Code(s): R82.90 - Unspecified abnormal findings in urine Status: Acute Assessment and Plan: dc ceftriaxone, Ecoli growth, transition to oral- cefdinir 300mg bid (6) Cardiomyopathy: Code(s): I42.9 - Cardiomyopathy, unspecified Status: Acute Assessment and Plan: Status post PM/ICD insertion. Mild pulmonary edema on chest x-ray though she looks dry on exam. (7) Hypertension: Code(s): I10 - Essential (primary) hypertension Status: Acute Assessment and Plan: Blood pressures have been soft. Cautious IV fluid rehydration overnight. Continue Entresto with parameters. Hold isosorbide for now. (8) Parkinsons: Code(s): G20 - Parkinson's disease Status: Acute Assessment and Plan: Continue carbidopa-levodopa. Initiate fall precautions. 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 Neurology consult in DS: Summary Hospital Course Reason for hospitalization: Urinary tract infection headache Hospital Course: Patient past medical history of Parkinson's, stroke CHF, cardiomyopathy and status post/ICD insertion, diabetes and hypertension. She was a direct admit from a [facility] installment with telemetry. Due to a headache and right eye twitching as well as a consultation for Neurology. Patient was also noted frequency and dysuria. She was found have a urinary tract infection and was started empirically on Rocephin pending cultures. Prior to transf
[2021-08-18] MEDS: CEFDINIR 300 MG CAPSULE PO (11:07)
[2021-08-19 08:10] LABS: Glucose Point of Care 193 mg/dl (65-105)
[2021-08-19 08:11] LABS: Glucose Point of Care 265 mg/dl (65-105)
[2021-08-19 08:12] LABS: Glucose Point of Care 171 mg/dl (65-105)
[2021-08-19 08:13] LABS: Glucose Point of Care 140 mg/dl (65-105)
[2021-08-19 08:13] LABS: Glucose Point of Care 181 mg/dl (65-105)
[2021-08-19 08:14] LABS: Glucose Point of Care 123 mg/dl (65-105)
[2021-08-19 08:14] LABS: Glucose Point of Care 188 mg/dl (65-105)
[2021-08-19 08:15] LABS: Glucose Point of Care 160 mg/dl (65-105)
== END 2021-08-18 14:25 | disposition home or self-care (01) ==
PROVIDERS: Physician Assistant; Admitting Provider Internal Medicine; PCP Family Medicine; Visit Provider Nurse Practitioner Family
DX: R51.9 Headache, unspecified (principal); G51.4 Facial myokymia; E87.8 Other disorders of electrolyte and fluid balance, not elsewhere classified; N19 Unspecified kidney failure; R82.90 Unspecified abnormal findings in urine; E87.1 Hypo-osmolality and hyponatremia; E83.42 Hypomagnesemia; G20 Parkinson's disease; I11.0 Hypertensive heart disease with heart failure; I50.9 Heart failure, unspecified; I42.9 Cardiomyopathy, unspecified; E11.9 Type 2 diabetes mellitus without complications; I25.10 Atherosclerotic heart disease of native coronary artery without angina pectoris; I69.354 Hemiplegia and hemiparesis following cerebral infarction affecting left non-dominant side; M47.812 Spondylosis without myelopathy or radiculopathy, cervical region; Z95.810 Presence of automatic (implantable) cardiac defibrillator; Z79.4 Long term (current) use of insulin; Z95.5 Presence of coronary angioplasty implant and graft; F17.210 Nicotine dependence, cigarettes, uncomplicated; Z79.82 Long term (current) use of aspirin; Z79.02 Long term (current) use of antithrombotics/antiplatelets
CPT/HCPCS: 36415; 36600; 76775; 80048; 80053; 82375; 82805; 82948; 83050; 83735; 84443; 85027; 93306; 94762; 96365; A9270; G0378; G0379; J0696; J1815; J7030; J7040

== ENCOUNTER 2021-12-12 13:44 | Emergency (ER) | payer OTHER, SELFPAY ==
--- NOTE | ~2021-12-12 | XR_ITS ---
EXAMINATION: XR abdomen obstructive series DATE: 12/12/2021 15:08 INDICATION: Constipation TECHNIQUE: Upright and supine views of the abdomen were obtained. COMPARISON: None. FINDINGS: There is a large volume of stool in the rectum and distal sigmoid colon. No dilated loops o f bowel are identified. There is moderate osteoarthritis of the hips. Surgical clips are noted in the left upper quadrant. Surgical clips in the right upper quadrant are likely from prior cholecystectom y. Cardiomegaly is noted. IMPRESSION: 1. Large volume of stool in the rectum and distal sigmoid colon. Reviewed, dictated and finalized at location A.
[2021-12-12 13:45] VITALS: BP 156/79; PULSE 72; RESP 20; TEMP 36.8; O2SAT 97
[2021-12-12 15:31] LABS: Alanine Aminotransferase 15 U/L (14-59); Albumin Level 3.4 g/dL (3.4-5.0); Alkaline Phosphatase 133 U/L (46-116); Anion Gap 11 mmol/L (8-16); Aspartate Amino Transferase 19 U/L (15-37); Bilirubin,Total 0.5 mg/dL (0.00-1.00); Blood Urea Nitrogen 15 mg/dL (7-18); Calcium 9.3 mg/dL (8.5-10.1); Carbon Dioxide 24 mmol/L (21-32); Chloride 100 mmol/L (98-108); Estimated Glomerular Filt Rate 58; Glucose 171 mg/dL (70-99); Osmolality Calculated 284 mOsm/kg (285-295); Potassium 3.8 mmol/L (3.5-5.1); Sodium 135 mmol/L (136-145); Total Protein 7.6 g/dL (6.4-8.2)
--- NOTE | 2021-12-12 16:17 | ED.GENADULT ---
HPI - General Adult General Chief complaint: Unspecified Stated complaint: Ambulance Time Seen by Provider: 12/12/21 13:47 Source: patient Mode of arrival: ambulatory Limitations: no limitations History of Present Illness HPI narrative: This is a 66-year-old female that presents with chronic constipation has been having constipation for the last 3 days unable to have a bowel movement, currently there is some mild abdominal discomfort and fullness with no fever chills no shortness of breath no chest pain no nausea vomiting. Onset (ago): day(s) Related Data Home Medications Medication Instructions Recorded Confirmed aspirin 81 mg tablet,delayed 81 mg PO DAILY 08/15/21 08/16/21 release atorvastatin 80 mg tablet 80 mg PO DAILY 08/15/21 08/16/21 bupropion HCl 300 mg 24 hr tablet, 300 mg PO DAILY 08/15/21 08/16/21 extended release carbidopa 25 mg-levodopa 100 mg 1 tablet PO TID 08/15/21 08/16/21 tablet citalopram 40 mg tablet 40 mg PO DAILY 08/15/21 08/16/21 clopidogrel 75 mg tablet 75 mg PO DAILY 08/15/21 08/16/21 furosemide 40 mg tablet 20 mg PO QACLUNCH 08/15/21 08/16/21 furosemide 40 mg tablet 40 mg PO QACBREAK 08/15/21 08/16/21 insulin glargine 100 unit/mL (3 50 unit subcut BID 08/15/21 08/16/21 mL) subcutaneous pen (Lantus Solostar U-100 Insulin) insulin lispro 100 unit/mL 30 unit subcut TID 08/15/21 08/16/21 subcutaneous solution (Admelog U-100 Insulin lispro) isosorbide mononitrate 30 mg 30 mg PO DAILY 08/15/21 08/16/21 tablet,extended release 24 hr lorazepam 0.5 mg tablet 0.25 - 0.5 mg PO TID PRN Anxiety 08/15/21 08/16/21 magnesium oxide 400 mg (241.3 mg 400 mg PO DAILY 08/15/21 08/16/21 magnesium) tablet nitroglycerin 0.4 mg sublingual 0.4 mg sublingual DAILY PRN Chest 08/15/21 08/16/21 tablet Pain oxybutynin chloride 5 mg tablet 5 mg PO BID 08/15/21 08/16/21 pantoprazole 40 mg tablet,delayed 40 mg PO DAILY 08/15/21 08/16/21 release pramipexole 0.25 mg tablet 0.25 mg PO HS 08/15/21 08/16/21 sacubitril 24 mg-valsartan 26 mg 1 tablet PO BID 08/15/21 08/16/21 tablet (Entresto) Allergies Allergy/AdvReac Type Severity Reaction Status Date / Time buspirone [BuSpar] Allergy Intermediate nausea Verified 10/19/20 09:38 duloxetine [Cymbalta] Allergy Intermediate Unknown Verified 08/15/21 16:51 pregabalin [Lyrica] Allergy Intermediate Unknown Verified 08/15/21 16:51 sulfamethoxazole Allergy Unknown Verified 08/15/21 16:51 [From Bactrim] trimethoprim [From Bactrim] Allergy Unknown Verified 08/15/21 16:51 Review of Systems Review of Systems: All systems reviewed & are unremarkable except as noted in HPI and below PMFSH Past Medical History Medical History Arthritis Cardiomyopathy Status post ICD insertion. Cerebrovascular accident Mild left-sided weakness. Congestive heart failure Coronary artery disease Hypertension Insulin dependent type 2 diabetes mellitus Parkinsons Surgical History Surgical History History of cardiac catheterization History of cholecystectomy History of coronary angioplasty with insertion of stent History of hysterectomy Presence of combination internal cardiac defibrillator (ICD) and pacemaker Family History Family History Other Diabetes mellitus Hypertension Social History Social History Social History: Surrogate decision maker: Denilson Adairhy. Code status: Full code. Smoking packs per day: 1 Smoking cigarettes per day: 20.0 Years smoked: 46 Smoking pack-years: 46.00 Smoking status: Current some day smoker Tobacco type: cigarettes Alcohol intake: never Substance use: never Substance use type: does not use Additional living arrangements comments: The patient lives in [place] with her [facility]. Noemi
[2021-12-12 16:34] VITALS: BP 150/72; PULSE 72; RESP 20; TEMP 36.6; O2SAT 99
== END 2021-12-12 16:36 | disposition home or self-care (01) ==
PROVIDERS: Emergency Provider Emergency Medicine; PCP Family Medicine
DX: K59.00 Constipation, unspecified (principal)
CPT/HCPCS: 36415; 74019; 80053; 99283

== ENCOUNTER 2023-10-19 15:41 | Inpatient (IN) | payer MEDICARE, MEDICAID, SELFPAY ==
[2023-10-19] VITALS (8 sets, daily range): BP systolic 119–141; BP diastolic 51–75; PULSE 60–64; RESP 14–20; TEMP 36.4–36.8; O2SAT 96–100; BMI 29.1
--- NOTE | ~2023-10-19 | XR_ITS ---
EXAMINATION: XR chest 1V portable DATE: 10/20/2023 10:19 INDICATION: Chest pain. TECHNIQUE: A single frontal view of the chest was obtained. COMPARISON: Chest view 08/15/2021 FINDINGS: There is no pneumonia, pleural effusion, or pneumothorax. The heart size is normal. There i s a left chest pacer/defibrillator with leads in right atrium, right ventricle, and coronary sinus. T here are surgical clips in the abdomen. IMPRESSION: 1. No acute cardiopulmonary disease. Reviewed, dictated and finalized at location A.
--- NOTE | 2023-10-19 15:20 | ADMGEN ---
This patient, Lillian Huntley, was admitted to IMU Room 206-02 from [facility] in [facility] .Patient oriented to hospital policies and general routines including ID bracelet, bed and alarms, visiting hours, pain management, procedures, bathroom and other care routines, personal items, smoking policy, room service/diet, and visiting hours. monitor on - 100% paced- VSS- no c/o pain Information on how to activate the Rapid Response Team has been discussed. Patient are encouraged to report perceived risks to care and to ask questions if they do not understand what they are told or what they should do.
--- NOTE | 2023-10-19 15:41 | ECG_ITS ---
Test Date: 2023-10-19 15:51:35 Measurements Intervals [place] Rate: 60 P: 134 NJ: 163 QRS: 162 QRSD: 178 T: 5 QT: 505 QTc: 506 Interpretive Statements ELECTRONIC ATRIAL PACEMAKER ELECTRONIC VENTRICULAR PACEMAKER ABNORMAL RHYTHM ECG No previous ECG available for comparison Electronically Signed On 10-19-2023 16:05:01 CDT by Vitor Henson M.D.
--- NOTE | 2023-10-19 15:42 | ECHO_ITS ---
Patient Info Name: Lillian Huntley Age: 68 years : 1955 Gender: Female Ht: 61 in Wt: 154 lbs BSA: 1.76 m2 HR: 64 bpm BP: 120 / 53 mmHg Heart Rhythm: Sinus Rhythm Technical Quality: Good Exam Date: 10/19/2023 4:12 PM Exam Location: Echo Lab Patient Status: Outpatient Admit Date: 10/19/2023 Staff Ordering Physician: Cally Lynne PA-C Lace Inspector: Catalina Polo RDCS Attending Provider: Deangelo Bermeo MD Referring Physician: Guera MONTOYA; Exam Type: CA echo doppler color flow Study Info Indications - NSTEMI Complete two-dimensional, color flow and Doppler transthoracic echocardiogram is performed. Summary 1. Complete two-dimensional, color flow and Doppler transthoracic echocardiogram is performed. 2. Left ventricular chamber dimension is severely enlarged. 3. Left ventricular systolic function is severely globally reduced, estimated at 30-35%. 4. Basal to apical inferoposterior segment is akinetic. 5. The left ventricular diastolic function is abnormal. 6. E/e' 39 is significantly elevated. 7. Linear artifact in right ventricle suggestive of catheter(s), pacemaker lead(s), or ICD lead(s). 8. Left atrial chamber dimension is moderately enlarged. 9. Linear artifact in the right atrium suggestive of catheter(s), pacemaker lead(s), or ICD lead(s). 10. There is mild aortic valve sclerosis. 11. There is mild mitral valve regurgitation. 12. No pulmonary hypertension, estimated pulmonary arterial systolic pressure is 23 mmHg. Left Ventricle Basal to apical inferoposterior segment is akinetic. Left ventricular systolic function is severely globally reduced, estimated at 30-35%. E/e' 39 is significantly elevated. Left ventricular chamber dimension is severely enlarged. The left ventricular diastolic function is abnormal. Right Ventricle Right ventricular systolic function is normal and with normal TAPSE 1.9 cm. Linear artifact in right ventricle suggestive of catheter(s), pacemaker lead(s), or ICD lead(s). Right ventricular chamber dimension is normal. Left Atria Left atrial chamber dimension is moderately enlarged. Right Atria Linear artifact in the right atrium suggestive of catheter(s), pacemaker lead(s), or ICD lead(s). Right atrial chamber dimension is normal. Aortic Valve The aortic valve is trileaflet. There is mild aortic valve sclerosis. There is no aortic valve stenosis. There is no aortic valve regurgitation. Pulmonic Valve There is no pulmonic regurgitation. Mitral Valve There is no mitral valve stenosis. There is mild mitral valve regurgitation. Tricuspid Valve There is no tricuspid valve regurgitation. No pulmonary hypertension, estimated pulmonary arterial systolic pressure is 23 mmHg. Pericardium/Pleural There is no pericardial effusion. Inferior Vena Cava Normal inferior vena cava with >50% collapse upon inspiration consistent with normal right atrial pressure, 5 mmHg. Aorta The aortic root size at the sinus of Valsalva is normal. Left Ventricular Outflow Tract Name Value Normal LVOT 2D LVOT Diameter 2.0 cm LVOT Doppler LVOT Peak Gradient 1 mmHg LVOT Mean Gradient 1 mmHg L
--- NOTE | 2023-10-19 15:43 | PM.IMHP ---
H&P: HPI History of Present Illness Date/Time: 10/19/23 17:00 Chief Complaint: NSTEMI. Narrative: This is a 68-year-old female with history of stroke, Parkinson's disease, coronary artery disease with history of stents, congestive heart failure, cardiomyopathy, hypertension, status post PM/ICD, and type 2 diabetes mellitus who is being directly admitted to the IMU from the emergency department at [facility] [place] with the diagnosis of non STEMI after presenting to their facility with chest pain. She presented to the outside emergency department yesterday for evaluation of nonradiating, left-sided chest pain associated with mild shortness of breath and nausea. It seemed to be worse when walking and better with rest. EKG from their facility was not available for review. Labs were significant for a he hemoglobin of 4.7, hematocrit 11.7, platelet 156, sodium 139, potassium 3.5, BUN 11, creatinine 0.87, glucose 139. High sensitivity troponin trend: 409, 598, 630. She was started on a heparin drip and transfer was initiated to [place] due to lack of cardiology service at their facility. She has not had any recurrence of her symptoms at the time my evaluation has no complaints. She denies syncope, near syncope, fever, chills, sweats, cold and flu symptoms, current chest pain, pleuritic pain, orthopnea, paroxysmal nocturnal dyspnea, edema, nausea, vomiting, and diarrhea. Of note, the patient admits that she does not take her prescribed medications at home and ?that is [facility] to the [facility] Review of Systems Review of Systems: 12 systems were reviewed and are negative except for as per HPI. [facility] Past Medical History Medical History Arthritis Cardiomyopathy Status post ICD insertion. Cerebrovascular accident Mild left-sided weakness. Congestive heart failure Coronary artery disease Hypertension Insulin dependent type 2 diabetes mellitus Parkinsons Surgical History Surgical History History of cardiac catheterization History of cholecystectomy History of coronary angioplasty with insertion of stent History of hysterectomy Presence of combination internal cardiac defibrillator (ICD) and pacemaker Family History Family History Other Diabetes mellitus Hypertension Social History Social History Social History: Surrogate decision maker: Denilson Ceron. Code status: Full code. Smoking packs per day: 1 Smoking cigarettes per day: 20.0 Years smoked: 43 Smoking pack-years: 43.00 Smoking status: Former smoker Tobacco type: cigarettes Smoking end date: 10/17/23 Alcohol intake: never Substance use: never Substance use type: does not use Do You Feel Safe in your Home?: Yes Lack of Transportation: No Lack of Food: Never True Current Housing: I Have Housing Concerned About Future Housing: No Difficulty Paying Gas/Electric Bills: No Difficulty Paying for Meds: No Currently Unemployed: No Education: High School Diploma/GED Difficulty w/ Childcare or Family Care: No Additional living arrangements comments: The patient lives in [place] with her [facility]. Spiritual care concerns: No Meds Home Medications and Allergies Home Medications Medication Instructions Recorded Confirmed Type No Home Medications 10/19/23 10/19/23 History Allergies Allergy/AdvReac Type Severity Reaction Status Date / Time buspirone [BuSpar] Allergy Intermediate nausea Verified 10/19/20 09:38 duloxetine [Cymbalta] Allergy Intermediate Unknown Verified 08/15/21 16:51 pregabalin [Lyrica] Allergy Intermediate Unknown Verified 08/15/21 16:51 levofloxacin [From Levaquin] Allergy Mild Itching Verified 10/19/23 15:42 sulfamethoxazole Allergy Unknown Ramu
--- NOTE | 2023-10-19 15:47 | PC.NURSE ---
reviewed pt home medications pt stated she does not take any of her home medications because she doesn't want to take medications
--- NOTE | 2023-10-19 16:06 | PM.CNCAR ---
Assessment and Plan Assessment and plan (1) Chest pain: Code(s): R07.9 - Chest pain, unspecified Status: Acute Assessment and Plan: Troponin was at 630 [0-51] at [facility] and trending down. EKG shows AV paced rhythm. On heparin drip. Continue aspirin, resume Atorvastatin, Check troponin. Obtain echo. Discuss risks/benefits/alternative to [facility] and she is agreeable to it. Will consult HCG for it. Plan for it tomorrow. (2) Non-ST elevated myocardial infarction: Code(s): I21.4 - Non-ST elevation (NSTEMI) myocardial infarction Status: Acute (3) Coronary artery disease: Code(s): I25.10 - Atherosclerotic heart disease of [place] coronary artery without angina pectoris Status: Acute (4) ICD (implantable cardioverter-defibrillator) in place: Code(s): Z95.810 - Presence of automatic (implantable) cardiac defibrillator Status: Acute Assessment and Plan: Interrogate device. Unknown model. Patient states last check was over a year ago. (5) Dyslipidemia: Code(s): E78.5 - Hyperlipidemia, unspecified Status: Acute Assessment and Plan: Was on Atorvastatin. (6) Tobacco abuse: Code(s): Z72.0 - Tobacco use Status: Acute Assessment and Plan: Counseled regarding smoking cessation. History of Present Illness History of Present Illness Consult date/time: 10/19/23 16:06 Reason For Visit: NSTEMI Narrative: 68 yr old woman presents to [place] [facility] for chest pain then transferred here for further management of possible NSTEMI. She has a history of 9 coronary stents, cardiomyopathy with ICD in place (unsure of model), dyslipidemia, DM, COPD, smoking. Her regular aircraft charter dispatcher is at [facility] but has relocated and she needs new aircraft charter dispatcher. Reports yesterday intermittently for 2 hours she had chest pain described as an ache at rest. She called ambulance and taken to [place] [facility], troponin elevated, and therefore transferred to [facility]. Currently no chest pains. She is able to walk 1.5 blocks prior to [place]. She smokes 1 ppd and quit 3 days ago. She quit taking all of her medication about a month ago due to she did not want to keep a schedule. Review of Systems Review of Systems: All systems reviewed & are unremarkable except as noted in HPI and below Constitutional: Constitutional: Reports as per HPI, Denies chills and Denies fever(s) Cardiovascular: Cardiovascular: Reports as per HPI, Reports chest pain and Denies irregular heart rhythm Respiratory: Respiratory: Reports as per HPI and Denies dyspnea Gastrointestinal: Gastrointestinal: Reports as per HPI and Denies abdominal pain Genitourinary: Genitourinary: Reports as per HPI and Denies dysuria Musculoskeletal: Musculoskeletal: Reports as per HPI Neurologic: Reports as per HPI, Denies dizziness and Denies syncope COUNT INCLUDES THE [facility] Past Medical History Medical History Arthritis Cardiomyopathy Status post ICD insertion. Cerebrovascular accident Mild left-sided weakness. Congestive heart failure Coronary artery disease Hypertension Insulin dependent type 2 diabetes mellitus Parkinsons Surgical History Surgical History History of cardiac catheterization History of cholecystectomy History of coronary angioplasty with insertion of stent History of hysterectomy Presence of combination internal cardiac defibrillator (ICD) and pacemaker Family History Family History Other Diabetes mellitus Hypertension Social History Social History Social History: Surrogate decision maker: Denilson Jie. Code status: Full code. Smoking packs per day: 1 Smoking cigarettes per day: 20.0 Years smoked: 43 Smoking pack-years: 43.00 Smoking status
--- NOTE | 2023-10-19 16:09 | PC.NURSE ---
1455 pt arrived from [facility] with IV heparin infusing at 7.1 cc/pf=[id number] /[id number]- verified by Alice Alexander RN-
[2023-10-19 16:44] LABS: Basophils Percent Auto 0.7 % (0.2-1.2); Eosinophils Absolute Auto 0.2 K/mm3 (0-0.3); Eosinophils Percent Auto 3.3 % (0-4.4); Hematocrit 41.2 % (37.0-47.0); Hemoglobin 12.5 g/dL (12.0-15.0); Lymphocytes Absolute Auto 2.33 K/mm3 (0.9-3.2); Lymphocytes Percent Auto 42.6 % (18.3-44.2); Mean Corpuscular HGB Conc 30.3 g/dl (32-36); Mean Corpuscular Hemoglobin 23.1 pg (26-34); Mean Corpuscular Volume 76.2 fl (80-100); Mean Platelet Volume 9.1 fl (7.4-10.4); Monocytes Absolute Auto 0.2 K/mm3 (0.1-0.6); Monocytes Percent Auto 4.4 % (2.6-8.5); Neutrophils Absolute Auto 2.7 K/mm3 (1.3-6.7); Platelet Count Result 169 k/mm3 (150-375); Red Blood Count 5.41 M/mm3 (4.2-5.4); Red Cell Distribution Width 17.3 % (11.5-14.5); White Blood Count 5.5 K/mm3 (4.5-10.0)
[2023-10-19 16:55] LABS: Prothrombin Time 13.7 Seconds (11.1-14.7)
[2023-10-19 16:56] LABS: Partial Thromboplastin Time 42.6 Seconds (22.3-36.8)
[2023-10-19] MEDS: HEPARIN SODIUM 5,000 UNITS/ML VIAL 4000 UNITS IV PUSH (17:07)
[2023-10-19] MEDS: HEPARIN SOD/D5W 100 UNITS/ML 25,000 UNITS/250 ML BAG 9 UNITS IV CONT (17:08)
[2023-10-19 17:19] LABS: Troponin I 0.038 ng/mL (0.000-0.034)
[2023-10-19 19:48] LABS: Troponin I 0.035 ng/mL (0.000-0.034)
[2023-10-19] MEDS: ACETAMINOPHEN 325 MG TABLET 650 MG PO (20:43)
[2023-10-19] MEDS: ATORVASTATIN 40 MG TABLET 80 MG PO (20:44)
[2023-10-19 23:45] LABS: Troponin I 0.036 ng/mL (0.000-0.034)
[2023-10-19 23:56] LABS: Partial Thromboplastin Time > 200.0 Seconds (22.3-36.8)
[2023-10-20] VITALS (21 sets, daily range): BP systolic 114–139; BP diastolic 49–67; PULSE 57–69; RESP 14–20; TEMP 36.2–36.5; O2SAT 97–100
[2023-10-20 07:13] LABS: Basophils Absolute Auto 0.1 K/mm3 (0.0-0.1); Basophils Percent Auto 1.2 % (0.2-1.2); Eosinophils Absolute Auto 0.2 K/mm3 (0-0.3); Eosinophils Percent Auto 3.1 % (0-4.4); Hemoglobin 11.9 g/dL (12.0-15.0); Immature Granulocyte Absolute 0.05 K/mm3 (0.00-0.031); Immature Granulocyte Percent A 0.9 % (0-0.5); Lymphocytes Absolute Auto 2.63 K/mm3 (0.9-3.2); Lymphocytes Percent Auto 44.8 % (18.3-44.2); Mean Corpuscular HGB Conc 30.5 g/dl (32-36); Mean Corpuscular Hemoglobin 23.1 pg (26-34); Mean Corpuscular Volume 75.7 fl (80-100); Mean Platelet Volume 9.7 fl (7.4-10.4); Monocytes Absolute Auto 0.3 K/mm3 (0.1-0.6); Monocytes Percent Auto 4.8 % (2.6-8.5); Neutrophils Absolute Auto 2.7 K/mm3 (1.3-6.7); Neutrophils Percent Auto 45.2 % (45.5-73.1); Platelet Count Result 175 k/mm3 (150-375); Red Blood Count 5.15 M/mm3 (4.2-5.4); Red Cell Distribution Width 17.1 % (11.5-14.5); White Blood Count 5.9 K/mm3 (4.5-10.0)
[2023-10-20 07:20] LABS: Anion Gap 2 mmol/L (4-12); Blood Urea Nitrogen 14 mg/dL (7-17); Calcium 9.1 mg/dL (8.4-10.2); Carbon Dioxide 29 mmol/L (22-30); Chloride 106 mmol/L (98-107); Cholesterol 243 mg/dL (0-200); Estimated CRCL calculation 44 ml/min; Estimated Glomerular Filt Rate 55; Glucose 112 mg/dL (65-110); HDL Direct 38 mg/dL; Sodium 137 mmol/L (137-145); Triglycerides 176 mg/dL (<150)
[2023-10-20 07:22] LABS: Partial Thromboplastin Time 93.1 Seconds (22.3-36.8)
[2023-10-20 07:31] LABS: LDL Cholesterol Direct 175 mg/dL
--- NOTE | 2023-10-20 07:42 | PM.PNCARD ---
Progress Note: A&P Assessment and Plan (1) Chest pain: Code(s): R07.9 - Chest pain, unspecified Status: Acute Assessment and Plan: Troponin was at 630 [0-51] at [facility] and trending down. EKG shows AV paced rhythm. On heparin drip. Continue aspirin, resumed Atorvastatin. 10/20/23 Echo: EF 30-35%, severe LVE, basal to apical inferoposterior segment is akinetic, diastolic dysfunction (E/e' 39), mod LAE, mild MR.. Discuss risks/benefits/alternative to [facility] and she is agreeable to it. [facility] consulted for it. (2) Non-ST elevated myocardial infarction: Code(s): I21.4 - Non-ST elevation (NSTEMI) myocardial infarction Status: Acute (3) Coronary artery disease: Code(s): I25.10 - Atherosclerotic heart disease of [place] coronary artery without angina pectoris Status: Acute (4) ICD (implantable cardioverter-defibrillator) in place: Code(s): Z95.810 - Presence of automatic (implantable) cardiac defibrillator Status: Acute Assessment and Plan: Interrogate device. Unknown model. Patient states last check was over a year ago. (5) Dyslipidemia: Code(s): E78.5 - Hyperlipidemia, unspecified Status: Acute Assessment and Plan: On Atorvastatin. (6) Tobacco abuse: Code(s): Z72.0 - Tobacco use Status: Acute Assessment and Plan: Counseled regarding smoking cessation. (7) Combined systolic and diastolic cardiac dysfunction: Code(s): I51.89 - Other ill-defined heart diseases Status: Acute Assessment and Plan: Appears euvolemic. Start Metoprolol Succinate 12.5 mg daily and Losartan 12.5 mg daily, Jardiance 10 mg daily. Subjective Date/time seen: 10/20/23 07:42 Interval history: No more chest pain. No sob. Exam Const: General: cooperative, healthy appearing and comfortable Orientation/consciousness: oriented to person, oriented to place and oriented to time Resp: Auscultation: clear to auscultation bilaterally, no crackles, no rales, no rhonchi and no wheezes Cardio: Rate: regular rate Rhythm: regular rhythm Heart sounds: no murmurs Peripheral pulses: dorsalis pedis present Neuro: General: oriented to person, oriented to place and oriented to time Extrem: Right lower extremity: no edema Left lower extremity: no edema Objective Data Vital Signs Vital Signs: Vital Signs - 24 hr 10/19/23 16:00 10/19/23 16:00 10/19/23 15:10 Temperature 98.2 F Pulse Rate 60 60 64 Respiratory Rate 20 20 Blood Pressure 120/53 L Pulse Oximetry 96 96 Oxygen Delivery Room Air 10/19/23 18:00 10/19/23 17:15 10/19/23 19:57 Temperature 97.5 F L Pulse Rate 60 62 60 Respiratory Rate 20 16 Blood Pressure 141/51 H 141/75 H Pulse Oximetry 97 Oxygen Delivery 10/19/23 20:00 10/19/23 20:00 10/19/23 21:32 Temperature Pulse Rate 60 60 60 Respiratory Rate 16 Blood Pressure Pulse Oximetry 97 Oxygen Delivery Room Air 10/19/23 23:50 10/20/23 00:00 10/20/23 00:00 Temperature 97.6 F Pulse Rate 60 60 60 Respiratory Rate 14 14 Blood Pressure 119/51 L Pulse Oximetry 100 100 Oxygen Delivery Room Air 10/20/23 01:49 10/20/23 03:28 10/20/23 03:43 Temperature 97.7 F Pulse Rate 60 62 61 Respiratory Rate 16 Blood Pressure 114/66 Pulse Oximetry 100 Oxygen Delivery 10/20/23 03:44 10/20/23 05:25 Temperature Pulse Rate 61 61 Respiratory Rate 16 Blood Pressure Pulse Oximetry 100 Oxygen Delivery Room Air Intake/Output Intake/Output: Intake & Output 10/17/23 10/18/23 10/19/23 10/20/23 23:59 23:59 23:59 23:59 Intake Total 320 106.7 Output Total 0 Balance 320 106.7 Meds/Results Medications: Active Medications Generic Name Dose Route Start Last Admin Trade Name Freq PRN Reason Stop Dose Admin Acetaminophen 650 mg 10/19/23 15:41 10/19/23 20:43 Acetaminophen 325 Mg Tablet PO 650 mg Q4H PRN Administration Mild Pain (1-3)
--- NOTE | 2023-10-20 08:51 | PM.IMPN ---
Progress Note: A&P Assessment and Plan (1) Non-ST elevated myocardial infarction: Code(s): I21.4 - Non-ST elevation (NSTEMI) myocardial infarction Status: Acute (2) Non compliance with medical treatment: Code(s): Z91.199 - Patient's noncompliance with other medical treatment and regimen due to unspecified reason Status: Acute (3) Coronary artery disease: Code(s): I25.10 - Atherosclerotic heart disease of [place] coronary artery without angina pectoris Status: Acute (4) Cardiomyopathy: Code(s): I42.9 - Cardiomyopathy, unspecified Status: Acute (5) Insulin dependent type 2 diabetes mellitus: Code(s): E11.9 - Type 2 diabetes mellitus without complications; Z79.4 - parts counterman (current) use of insulin Status: Acute Plan This is a 68-year-old female with history of stroke, Parkinson's disease, coronary artery disease with history of stents, congestive heart failure, cardiomyopathy, hypertension, status post PM/ICD, and type 2 diabetes mellitus who is being directly admitted to the IMU from the emergency department because of chest pain and shortness breath onset hospital. Patient was found have elevated troponins that the trend up: 409, 598, 630. She was started on a heparin drip and transfer was initiated to [place] due to lack of cardiology service at their facility. NSTEMI Patient has history of CAD stable stent, had chest pain yesterday EKG showed pacing rhythm, no ST elevation, elevated troponin Patient is on heparin drip Continue aspirin 81 mg daily p.o., Lipitor 80 mg daily p.o., Consult television analyzer, follow recommendation Combined chronic heart failure EF 30-35%, on echocardiogram October 19 2023 Finance Admin started Metoprolol Succinate 12.5 mg daily and Losartan 12.5 mg daily, Jardiance 10 mg daily Hypertension Start losartan 12.5 mg daily p.o. per television analyzer, Urinary retention Place [place] before the cardiac catheterization, follow urinalysis UA does not show pyuria Subjective Date/time seen: 10/20/23 08:51 Interval history: I saw exam patient today. Patient denies chest pain, palpitation, shortness breast. Patient afebrile, blood pressure stable, pulse ox 100% room air Exam Narrative: GENERAL: Pleasant, in no acute distress. Well-nourished. - EYES: EOMI. Anicteric. - HENT: Moist mucous membranes. - LUNGS: Clear to auscultation bilaterally, no wheezing, rhonchi, or rales. - CARDIOVASCULAR: Regular rate and rhythm. No murmur. No JVD. - ABDOMEN: Soft, non-tender and non-distended. No palpable masses. - EXTREMITIES: No edema. Peripheral pulses 2+. Non-tender. - NEUROLOGIC: No focal neurological deficits. CN II-XII grossly intact. - PSYCHIATRIC: Awake, Alert and oriented x 3. Appropriate mood and affect. - SKIN: No rashes or lesions. Warm. - LYMPH: No cervical lymphadenopathy. Objective Data Vital Signs Vital Signs: Vital Signs - 24 hr 10/19/23 16:00 10/19/23 16:00 10/19/23 15:10 Temperature 98.2 F Pulse Rate 60 60 64 Respiratory Rate 20 20 Blood Pressure 120/53 L Pulse Oximetry 96 96 Oxygen Delivery Room Air 10/19/23 18:00 10/19/23 17:15 10/19/23 19:57 Temperature 97.5 F L Pulse Rate 60 62 60 Respiratory Rate 20 16 Blood Pressure 141/51 H 141/75 H Pulse Oximetry 97 Oxygen Delivery 10/19/23 20:00 10/19/23 20:00 10/19/23 21:32 Temperature Pulse Rate 60 60 60 Respiratory Rate 16 Blood Pressure Pulse Oximetry 97 Oxygen Delivery Room Air 10/19/23 23:50 10/20/23 00:00 10/20/23 00:00 Temperature 97.6 F Pulse Rate 60 60 60 Respiratory Rate 14 14 Blood Pressure 119/51 L Pulse Oximetry 100 100 Oxygen Delivery Room Air 10/20/23 01:49 10/20/23 03:28 10/20/23 03:43 Temperature 97.7 F Pulse Rate 60 62 61 Respiratory Rate 16 Blood Pressure 114/66 Pulse Oximetry 100 Oxygen Delivery 10/20/23 03:44 10/20/23 05:25 10/20/23 08:00 Temperature 97.2 F L Puls
[2023-10-20] MEDS: ASPIRIN 81 MG ENTERIC TABLET PO (09:33)
[2023-10-20] MEDS: EMPAGLIFLOZIN 10 MG TABLET PO (09:33)
[2023-10-20] MEDS: METOPROLOL SUCCINATE EXT REL 12.5 MG TABCR PO (09:33)
[2023-10-20] MEDS: LOSARTAN POTASSIUM 12.5 MG TABLET PO (09:34)
[2023-10-20 10:25] LABS: Appearance Urine Cloudy (Clear); Bacteria Urine 4+ /hpf; Bilirubin Urine Negative (Negative); Blood Urine Negative (Negative); Color Urine Yellow (Yellow); Glucose Urine UA Negative (Negative); Ketones Urine Trace mg/dL (Negative); Leukocyte Esterase Ur Trace LEU/UL (Negative); Need Manual Microscopic Reviewed; Nitrate Urine Negative (Negative); Protein Urine 3+ mg/dL (Negative); RBC Urine 51-100 /hpf (0-2); Squamous Epithelial Cell Urine Few /hpf (Few); WBC Urine 0-5 /hpf (0-3); pH Urine 5.5 (5.0-9.0)
[2023-10-20 10:26] LABS: Add Urine Microscopic? YES; Specific Grav Ur 1.034 (1.001-1.035)
--- NOTE | 2023-10-20 11:38 | PM.CNCAR ---
Assessment and Plan Assessment and plan (1) Non-ST elevated myocardial infarction: Code(s): I21.4 - Non-ST elevation (NSTEMI) myocardial infarction Status: Acute (2) Coronary artery disease: Code(s): I25.10 - Atherosclerotic heart disease of [place] coronary artery without angina pectoris Status: Acute (3) Congestive heart failure: Code(s): I50.9 - Heart failure, unspecified Status: Chronic (4) Cardiomyopathy: Code(s): I42.9 - Cardiomyopathy, unspecified Status: Acute (5) Non compliance with medical treatment: Code(s): Z91.199 - Patient's noncompliance with other medical treatment and regimen due to unspecified reason Status: Acute Plan Will proceed with [facility]. Further recommendations and plan pending results of [facility]. History of Present Illness History of Present Illness Consult date/time: 10/20/23 11:38 Requesting physician: Modesto Morris DO Consult reason: Other ([facility]) Reason For Visit: NSTEMI Narrative: We are consulted for [facility] by Dr. Morris. Patient is a 68 year old female with coronary artery disease s/p prior stents, congestive heart failure s/p ICD, diabetes mellitus, hyperlipidemia, COPD, tobacco dependence who was transferred from [facility] to [place] for chest pain, elevated troponins concerning for NSTEMI. Patient's prior non clinical advisor is at [place], no prior cardiac records available here at [place] for review. Troponin at [place] was 630 [0-51]. EKG with AV paced rhythm. Troponins here at [place] are 0.038, 0.035, 0.036. LDL 175. Echocardiogram this admission shows severe enlargement of LV, LVEF 30-35%, basal to apical inferoposterior segment is akinetic, mild MR. Of note, patient is non-compliant with medications. She stopped taking all of her medications a month ago. Review of Systems Review of Systems: All systems reviewed & are unremarkable except as noted in HPI and below (HPI) [facility] Past Medical History Medical History Arthritis Cardiomyopathy Status post ICD insertion. Cerebrovascular accident Mild left-sided weakness. Congestive heart failure Coronary artery disease Hypertension Insulin dependent type 2 diabetes mellitus Parkinsons Surgical History Surgical History History of cardiac catheterization History of cholecystectomy History of coronary angioplasty with insertion of stent History of hysterectomy Presence of combination internal cardiac defibrillator (ICD) and pacemaker Family History Family History Other Diabetes mellitus Hypertension Social History Social History Social History: Surrogate decision maker: Denilson Ceron. Code status: Full code. Smoking packs per day: 1 Smoking cigarettes per day: 20.0 Years smoked: 43 Smoking pack-years: 43.00 Smoking status: Former smoker Tobacco type: cigarettes Smoking end date: 10/17/23 Alcohol intake: never Substance use: never Substance use type: does not use Do You Feel Safe in your Home?: Yes Lack of Transportation: No Lack of Food: Never True Current Housing: I Have Housing Concerned About Future Housing: No Difficulty Paying Gas/Electric Bills: No Difficulty Paying for Meds: No Currently Unemployed: No Education: High School Diploma/GED Difficulty w/ Childcare or Family Care: No Additional living arrangements comments: The patient lives in [place] with her [facility]. Spiritual care concerns: No Meds Home Medications and Allergies Home Medications Medication Instructions Recorded Confirmed Type No Home Medications 10/19/23 10/19/23 History Allergies Allergy/AdvReac Type Severity Reaction Status Date / Time buspirone [BuSpar] Allergy Intermediate nausea Verified 10/19/20 09:38 duloxetine [Cymba
[2023-10-20 13:22] LABS: Partial Thromboplastin Time 80.3 Seconds (22.3-36.8)
[2023-10-20] MEDS: CLOPIDOGREL BISULFATE 300 MG TABLET PO (16:14)
[2023-10-20] MEDS: ACETAMINOPHEN 325 MG TABLET 650 MG PO (16:14)
[2023-10-20 19:27] LABS: Hemoglobin A1C 7.1 % (<5.7)
[2023-10-20] MEDS: ATORVASTATIN 40 MG TABLET 80 MG PO (21:45)
[2023-10-21] VITALS: PULSE 61; RESP 20; O2SAT 100
[2023-10-21 02:00] VITALS: PULSE 63
[2023-10-21] MEDS: NITROGLYCERIN SL 0.4 MG TABLET SUBLINGUAL (02:10)
--- NOTE | 2023-10-21 02:10 | ECG_ITS ---
Test Date: 2023-10-21 02:18:39 Measurements Intervals [place] Rate: 60 P: 194 MS: 170 QRS: -43 QRSD: 172 T: 0 QT: 500 QTc: 500 Interpretive Statements ELECTRONIC ATRIAL PACEMAKER ELECTRONIC VENTRICULAR PACEMAKER Compared to ECG 10/19/2023 15:51:35 NO SIGNIFICANT CHANGES Electronically Signed On 10-21-2023 11:53:14 CDT by Viraj Reddy M.D.
[2023-10-21 02:26] VITALS: BP 132/63; PULSE 63; RESP 18; TEMP 36.6; O2SAT 98
[2023-10-21 04:00] VITALS: PULSE 63; RESP 18; O2SAT 98
[2023-10-21 05:22] VITALS: BP 119/75; PULSE 60; RESP 20; TEMP 36.4; O2SAT 95
[2023-10-21 05:32] LABS: Partial Thromboplastin Time 28.3 Seconds (22.3-36.8)
[2023-10-21 05:42] LABS: Troponin I 0.021 ng/mL (0.000-0.034)
--- NOTE | 2023-10-21 07:55 | PM.PNCARD ---
Progress Note: A&P Assessment and Plan (1) Chest pain: Code(s): R07.9 - Chest pain, unspecified Status: Acute Assessment and Plan: Resolved. Troponin was at 630 [0-51] at [facility] and trending down and only minimally elevated which normalized today. EKG shows AV paced rhythm. Continue aspirin, Plavix, Atorvastatin. 10/20/23 Echo: EF 30-35%, severe LVE, basal to apical inferoposterior segment is akinetic, diastolic dysfunction (E/e' 39), mod LAE, mild MR.. Discuss risks/benefits/alternative to [facility] and she is agreeable to it. HCG consulted for it, however, patient ultimately declined [facility] and wanting it to be done by [facility]. May d/c home from cardiology standpoint. She is safe to go home as she is cp free, troponin normalized, and hemodynamically stable. Advise to f/u with [facility] in 1 week and consider [facility] as an outpatient. Her regular spray drier operator helper relocated but advised they have many providers there who can take over care since she prefers to be with [facility]. (2) Non-ST elevated myocardial infarction: Code(s): I21.4 - Non-ST elevation (NSTEMI) myocardial infarction Status: Acute (3) Coronary artery disease: Code(s): I25.10 - Atherosclerotic heart disease of [place] coronary artery without angina pectoris Status: Acute (4) ICD (implantable cardioverter-defibrillator) in place: Code(s): Z95.810 - Presence of automatic (implantable) cardiac defibrillator Status: Acute Assessment and Plan: Unable to interrogate device. Unknown model. Patient states last check was over a year ago. F/U with [facility]. (5) Dyslipidemia: Code(s): E78.5 - Hyperlipidemia, unspecified Status: Acute Assessment and Plan: On Atorvastatin. (6) Tobacco abuse: Code(s): Z72.0 - Tobacco use Status: Acute Assessment and Plan: Counseled regarding smoking cessation. (7) Combined systolic and diastolic cardiac dysfunction: Code(s): I51.89 - Other ill-defined heart diseases Status: Acute Assessment and Plan: Appears euvolemic. On Metoprolol Succinate 12.5 mg daily and Losartan 12.5 mg daily, Jardiance 10 mg daily. Subjective Date/time seen: 10/21/23 07:55 Interval history: No more chest pain. No sob. Exam Const: General: cooperative, healthy appearing and comfortable Orientation/consciousness: oriented to person, oriented to place and oriented to time Resp: Auscultation: clear to auscultation bilaterally, no crackles, no rales, no rhonchi and no wheezes Cardio: Rate: regular rate Rhythm: regular rhythm Heart sounds: no murmurs Peripheral pulses: dorsalis pedis present Neuro: General: oriented to person, oriented to place and oriented to time Extrem: Right lower extremity: no edema Left lower extremity: no edema Objective Data Vital Signs Vital Signs: Vital Signs - 24 hr 10/20/23 08:00 10/20/23 09:33 10/20/23 08:20 Temperature 97.2 F L Pulse Rate 60 60 60 Respiratory Rate 20 Blood Pressure 131/67 Pulse Oximetry 100 Oxygen Delivery 10/20/23 10:00 10/20/23 12:00 10/20/23 16:00 Temperature 97.7 F 97.4 F L Pulse Rate 60 61 57 L Respiratory Rate 16 20 Blood Pressure 133/56 L 139/65 Pulse Oximetry 100 100 Oxygen Delivery 10/20/23 12:35 10/20/23 14:00 10/20/23 16:30 Temperature Pulse Rate 60 65 62 Respiratory Rate Blood Pressure Pulse Oximetry Oxygen Delivery 10/20/23 16:30 10/20/23 18:00 10/20/23 19:48 Temperature Pulse Rate 60 60 Respiratory Rate Blood Pressure Pulse Oximetry Oxygen Delivery Room Air 10/20/23 19:49 10/20/23 19:48 10/20/23 23:17 Temperature 97.5 F L 97.6 F Pulse Rate 60 57 L 69 Respiratory Rate 20 20 20 Blood Pressure 124/62 121/49 L Pulse Oximetry 99 99 100 Oxygen Delivery Room Air 10/20/23 22:00 10/21/23 00:00 10/21/23 00:00 Temperature Pulse Rate 69 61 61 Respiratory Ra
[2023-10-21 08:00] VITALS: BP 123/69; PULSE 60; PULSE 73; RESP 20; TEMP 36.1; O2SAT 100
[2023-10-21] MEDS: EMPAGLIFLOZIN 10 MG TABLET PO (08:00)
[2023-10-21] MEDS: METOPROLOL SUCCINATE EXT REL 12.5 MG TABCR PO (08:00)
[2023-10-21] MEDS: ASPIRIN 81 MG ENTERIC TABLET PO (08:01)
[2023-10-21] MEDS: LOSARTAN POTASSIUM 12.5 MG TABLET PO (08:01)
[2023-10-21] MEDS: CLOPIDOGREL BISULFATE 75 MG TABLET PO (08:01)
--- NOTE | 2023-10-21 09:30 | PM.IMPN ---
Progress Note: A&P Assessment and Plan (1) Non-ST elevated myocardial infarction: Code(s): I21.4 - Non-ST elevation (NSTEMI) myocardial infarction Status: Acute (2) Non compliance with medical treatment: Code(s): Z91.199 - Patient's noncompliance with other medical treatment and regimen due to unspecified reason Status: Acute (3) Coronary artery disease: Code(s): I25.10 - Atherosclerotic heart disease of [place] coronary artery without angina pectoris Status: Acute (4) Cardiomyopathy: Code(s): I42.9 - Cardiomyopathy, unspecified Status: Acute (5) Insulin dependent type 2 diabetes mellitus: Code(s): E11.9 - Type 2 diabetes mellitus without complications; Z79.4 - emt intermediate (current) use of insulin Status: Acute Plan This is a 68-year-old female with history of stroke, Parkinson's disease, coronary artery disease with history of stents, congestive heart failure, cardiomyopathy, hypertension, status post PM/ICD, and type 2 diabetes mellitus who is being directly admitted to the IMU from the emergency department because of chest pain and shortness breath onset hospital. Patient was found have elevated troponins that the trend up: 409, 598, 630. She was started on a heparin drip and transfer was initiated to [place] due to lack of cardiology service at their facility. NSTEMI Patient has history of CAD stable stent, had chest pain yesterday EKG showed pacing rhythm, no ST elevation, elevated troponin Patient is on heparin drip Continue aspirin 81 mg daily p.o., Lipitor 80 mg daily p.o., Consult head turbine operator, follow recommendation 10/20: Patient does not have chest pain, continue aspirin 81 mg daily p.o., Plavix 75 mg daily p.o., Lipitor 80 mg daily p.o., nitroglycerin sublingual p.r.n. Combined chronic heart failure EF 30-35%, on echocardiogram October 19 2023 [place] started Metoprolol Succinate 12.5 mg daily and Losartan 12.5 mg daily, Jardiance 10 mg daily Patient denies dyspnea, euvolemia Hypertension Start losartan 12.5 mg daily p.o. per head turbine operator, Urinary retention Place [place] before the cardiac catheterization, follow urinalysis UA does not show pyuria Retention resolved Subjective Date/time seen: 10/21/23 09:30 Interval history: Patient is afebrile, blood pressure stable, pulse ox 100% room air, patient denies chest pain, shortness breast, palpitation, abdomen pain, nausea vomiting diarrhea dysuria. Exam Narrative: GENERAL: Pleasant, in no acute distress. Well-nourished. - EYES: EOMI. Anicteric. - HENT: Moist mucous membranes. - LUNGS: Clear to auscultation bilaterally, no wheezing, rhonchi, or rales. - CARDIOVASCULAR: Regular rate and rhythm. No murmur. No JVD. - ABDOMEN: Soft, non-tender and non-distended. No palpable masses. - EXTREMITIES: No edema. Peripheral pulses 2+. Non-tender. - NEUROLOGIC: No focal neurological deficits. CN II-XII grossly intact. - PSYCHIATRIC: Awake, Alert and oriented x 3. Appropriate mood and affect. - SKIN: No rashes or lesions. Warm. - LYMPH: No cervical lymphadenopathy. Objective Data Vital Signs Vital Signs: Vital Signs - 24 hr 10/20/23 09:33 10/20/23 10:00 10/20/23 12:00 Temperature 97.7 F Pulse Rate 60 60 61 Respiratory Rate 16 Blood Pressure 133/56 L Pulse Oximetry 100 Oxygen Delivery 10/20/23 16:00 10/20/23 12:35 10/20/23 14:00 Temperature 97.4 F L Pulse Rate 57 L 60 65 Respiratory Rate 20 Blood Pressure 139/65 Pulse Oximetry 100 Oxygen Delivery 10/20/23 16:30 10/20/23 16:30 10/20/23 18:00 Temperature Pulse Rate 62 60 Respiratory Rate Blood Pressure Pulse Oximetry Oxygen Delivery Room Air 10/20/23 19:48 10/20/23 19:49 10/20/23 19:48 Temperature 97.5 F L Pulse Rate 60 60 57 L Respiratory Rate 20 20 Blood Pressure 124/62 Pulse Oximetry 99 99 Oxygen Delivery Room Air 10/20/23 23:17 10/20/23 22:00 10/21/23 00:00 Te
--- NOTE | 2023-10-21 11:27 | PM.DS ---
DS: Admitting Diagnosis Discharge Date 10/21/23 Admitting Diagnosis (1) Non-ST elevated myocardial infarction: Code(s): I21.4 - Non-ST elevation (NSTEMI) myocardial infarction Status: Acute (2) Non compliance with medical treatment: Code(s): Z91.199 - Patient's noncompliance with other medical treatment and regimen due to unspecified reason Status: Acute (3) Coronary artery disease: Code(s): I25.10 - Atherosclerotic heart disease of [place] coronary artery without angina pectoris Status: Acute (4) Cardiomyopathy: Code(s): I42.9 - Cardiomyopathy, unspecified Status: Acute (5) Insulin dependent type 2 diabetes mellitus: Code(s): E11.9 - Type 2 diabetes mellitus without complications; 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 Status: Acute DS: Discharge Diagnosis Discharge Diagnosis (1) Non-ST elevated myocardial infarction: Code(s): I21.4 - Non-ST elevation (NSTEMI) myocardial infarction Status: Acute (2) Non compliance with medical treatment: Code(s): Z91.199 - Patient's noncompliance with other medical treatment and regimen due to unspecified reason Status: Acute (3) Coronary artery disease: Code(s): I25.10 - Atherosclerotic heart disease of [place] coronary artery without angina pectoris Status: Acute (4) Cardiomyopathy: Code(s): I42.9 - Cardiomyopathy, unspecified Status: Acute (5) Insulin dependent type 2 diabetes mellitus: Code(s): E11.9 - Type 2 diabetes mellitus without complications; 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 Patient was found have elevated troponins that the trend up: 409, 598, 630. She was started on a heparin drip and transfer was initiated to [place] due to lack of cardiology service at their facility. The following medication issues have been addressed during hospitalization NSTEMI Patient has history of CAD stable stent, had chest pain yesterday EKG showed pacing rhythm, no ST elevation, elevated troponin Patient is on heparin drip Continue aspirin 81 mg daily p.o., Lipitor 80 mg daily p.o., Consult medical equipment repair technician, follow recommendation 10/20: Patient does not have chest pain, continue aspirin 81 mg daily p.o., Plavix 75 mg daily p.o., Lipitor 80 mg daily p.o., nitroglycerin sublingual p.r.n. Combined chronic heart failure EF 30-35%, on echocardiogram October 19 2023 Broadcast Operations Engineer started Metoprolol Succinate 12.5 mg daily and Losartan 12.5 mg daily, Jardiance 10 mg daily Patient denies dyspnea, euvolemia Hypertension Start losartan 12.5 mg daily p.o. per medical equipment repair technician, Urinary retention [facility] [place] before the cardiac catheterization, follow urinalysis UA does not show pyuria Retention resolved Broadcast Operations Engineer has approved to discharge patient today, patient prefers to see her medical equipment repair technician in [place] Hospital course uneventful, patient is afebrile blood pressure stable, condition stable on discharge Time Spent with Patient Time attestation: Total time spent providing and/or coordinating discharge services: Exam Narrative: GENERAL: Pleasant, in no acute distress. Well-nourished. - EYES: EOMI. Anicteric. - HENT: Moist mucous membranes. - LUNGS: Clear to auscultation bilaterally, no wheezing, rhonchi, or rales. - CARDIOVASCULAR: Regular rate and rhythm. No murmur. No JVD. - ABDOMEN: Soft, non-tender and non-distended. No palpable masses. - EXTREMITIES: No edema. Peripheral pulses 2+. Non-tender. - NEUROLOGIC: No focal neurological def
== END 2023-10-21 12:51 | disposition home or self-care (01) | DRG 281 ==
PROVIDERS: Internal Medicine; Internal Medicine Cardiovascular Disease; Physician Assistant; Admitting Provider Internal Medicine; PCP Family Medicine; Visit Provider Hospitalist
DX: I21.4 Non-ST elevation (NSTEMI) myocardial infarction (principal); I42.9 Cardiomyopathy, unspecified; I69.354 Hemiplegia and hemiparesis following cerebral infarction affecting left non-dominant side; I50.42 Chronic combined systolic (congestive) and diastolic (congestive) heart failure; I11.0 Hypertensive heart disease with heart failure; I25.10 Atherosclerotic heart disease of native coronary artery without angina pectoris; E11.9 Type 2 diabetes mellitus without complications; R33.9 Retention of urine, unspecified; G20.A1 Parkinson's disease without dyskinesia, without mention of fluctuations; Z95.5 Presence of coronary angioplasty implant and graft; Z95.810 Presence of automatic (implantable) cardiac defibrillator; Z87.891 Personal history of nicotine dependence; Z91.199 Patient's noncompliance with other medical treatment and regimen due to unspecified reason
CPT/HCPCS: 36415; 71045; 80048; 80061; 81001; 83036; 83735; 84484; 85025; 85610; 85730; 93005; 93306; 96365; 96366; A9270; G0378; J1644; J2305; J7040